=== PATIENT | male | born 1960 | race Two or more races ===

== ENCOUNTER 2017-07-19 03:58 | Emergency (ER) | payer MEDICAID, OTHER ==
[2017-07-19 03:58] VITALS: BMI 25.8
[2017-07-19 04:37] VITALS: BP 132/81; PULSE 78; RESP 18; TEMP 98.1; O2SAT 96
--- NOTE | 2017-07-19 05:03 | ED PDOC ---
Lower Extremity Pain/Injury Time Seen by Provider: 07/19/17 04:47 Chief Complaint (Nursing): Hip Pain History Per: Patient Additional Complaint(s): 56 year old male s/p L hip replacement 2 years ago, w/ h/o chronic L hip pain, presents to the ER, c/l L hip pain, mentions that he tripped and fell yesterday , causing exacerbation of his chronic L hip pain. Denies any other injury, numbness, LOC, back pain, head injury, or other complaints. - Hip Description Of Injury: Fell Past Medical History Vital Signs: Last Vital Signs Temp 98.1 F 07/19/17 04:34 Pulse 78 07/19/17 04:34 Resp 18 07/19/17 04:34 BP 132/81 07/19/17 04:34 Pulse Ox 96 07/19/17 04:34 - Medical History PMH: Depression, Chronic Pain Denies: Diabetes, Hepatitis, HIV, HTN, Chronic Kidney Disease, Seizures, Sexually Transmitted Disease - Family History Family History: States: Unknown Family Hx - Immunization History Hx Tetanus Toxoid Vaccination: No Hx Influenza Vaccination: No Hx Pneumococcal Vaccination: No - Home Medications Home Medications: Ambulatory Orders Medication Instructions Recorded Naproxen [Naprosyn] 1 tab PO BID PRN #30 tab 07/11/17 Naproxen [Naprosyn] 1 tab PO BID PRN #20 tab 07/16/17 - Allergies Allergies/Adverse Reactions: Allergies Allergy/AdvReac Type Severity Reaction Status Date / Time No Known Allergies Allergy Verified 07/16/17 23:04 Review of Systems Constitutional: Negative for: Fever, Weakness, Malaise Musculoskeletal: Positive for: Other (chronic L hip pain). Negative for: Neck Pain, Back Pain Skin: Negative for: Rash, Lesions Neurological: Negative for: Weakness, Numbness Physical Exam - Physical Exam Comments: GENERALIZED APPEARANCE:Patient is awake, alert, oriented x3 in no acute distress. Patient observed ambulating in the ER with his cane. SKIN:~ Warm, dry; (-) cyanosis. LOWER EXTREMITY:L hip: (-) deformity, (+) mild tenderness, (-) tenderness to the pelvis, (+) full range of motion secondary to pain. Knee, ankle and foot: (- ) tenderness, (-) deformity, (-) injury. CARDIOVASCULAR: (+) distal pulse. NEUROLOGIC: (+) distal sensation. - ECG O2 Sat by Pulse Oximetry: 96 Medical Decision Making Medical Decision Making: Impression : chronic L hip pain Plan : - XR L hip - Tylenol PO XR L hip : no fracture, no dislocation, no acute findings, XR compared to prior XR done on 07/11/17. X-ray results discussed with the patient in great detail. Patient instructed to follow-up with orthopedic referral provided in 1-2 days without fail. Rest, ice the joint. Return to the emergency room at any time for any new or worsening symptoms. Patient states he fully agrees with and understands discharge instructions. States that he agrees with the plan and disposition. Verbalized and repeated discharge instructions and plan. I have given the patient opportunity to ask any additional questions. 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
--- NOTE | 2017-07-19 08:30 | RAD ---
HISTORY: pain COMPARISON: No prior FINDINGS: BONES: Status post left hip arthroplasty in good anatomic alignment. JOINTS: Normal. No osteoarthritis. SOFT TISSUE: Normal. OTHER FINDINGS: None . IMPRESSION: Status post left hip arthroplasty in good anatomic alignment.
== END 2017-07-19 06:08 | disposition home or self-care (01) ==
LOC: H.ER 03:58
DX: M25.552 Pain in left hip (principal); G89.29 Other chronic pain; F32.9 Major depressive disorder, single episode, unspecified

== ENCOUNTER 2017-11-07 18:00 | Emergency (ER) | payer MEDICAID, OTHER ==
[2017-11-07 18:00] VITALS: BMI 25.8
[2017-11-07 18:07] VITALS: O2SAT 97
[2017-11-07] MEDS ORDERED: Tdap Vaccine 0.5 ml Vial (10-64 yrs) IM ONE ×2 (18:29→23:43)
--- NOTE | 2017-11-07 18:55 | CT ---
Date of service: 11/07/2017 PROCEDURE: CT HEAD WITHOUT CONTRAST. HISTORY: trauma COMPARISON: None available. TECHNIQUE: Axial computed tomography images were obtained through the head/brain without intravenous contrast. Radiation dose: Total exam DLP = 843.85 mGy-cm. This CT exam was performed using one or more of the following dose reduction techniques: Automated exposure control, adjustment of the mA and/or kV according to patient size, and/or use of iterative reconstruction technique. FINDINGS: HEMORRHAGE: No intracranial hemorrhage. BRAIN: No mass effect or edema. No atrophy or chronic microvascular ischemic changes. VENTRICLES: Unremarkable. No hydrocephalus. CALVARIUM: Unremarkable. PARANASAL SINUSES: Mild chronic ethmoid and right maxillary sinusitis. MASTOID AIR CELLS: Unremarkable as visualized. No inflammatory changes. OTHER FINDINGS: None. IMPRESSION: No acute intracranial hemorrhage. Mild chronic paranasal sinusitis. No additional abnormality
--- NOTE | 2017-11-07 19:01 | ED PDOC ---
HPI: Psych/Substance Abuse Time Seen by Provider: 11/07/17 18:09 Chief Complaint (Nursing): Alcohol Ingestion Chief Complaint (Provider): Alcohol Ingestion ED Caveat: Intoxicated History Per: Patient History/Exam Limitations: intoxication Onset/Duration Of Symptoms: Days (x2) Current Symptoms Are (Timing): Still Present Modifying Factor(s): Alcohol Additional Complaint(s): 57 y/o male brought to the ED for alcohol ingestion. Patient reports of drinking daily since Friday. Patient states he just got out of rehab/detox at [facility] and began drinking. Patient was walking outside today, fell and brought for further evaluation. Patient now complains of neck pain. Otherwise: (-) loss of consciousness, (-) headache, (-) back pain, (-) chest pain, (-) abdominal pain, (-) extremity injury. PMD: No family provider. Past Medical History Reviewed: Historical Data, Nursing Documentation, Vital Signs Vital Signs: Last Vital Signs Temp 97.8 F 11/07/17 18:03 Pulse 84 11/07/17 18:03 Resp 16 11/07/17 18:03 BP 162/99 H 11/07/17 18:03 Pulse Ox 97 11/07/17 18:03 - Medical History PMH: Depression, Chronic Pain Denies: Diabetes, Hepatitis, HIV, HTN, Chronic Kidney Disease, Seizures, Sexually Transmitted Disease - Surgical History Surgical History: No Surg Hx - Family History Family History: States: Unknown Family Hx - Social History Alcohol: > 2 Drinks/Day - Immunization History Hx Tetanus Toxoid Vaccination: No Hx Influenza Vaccination: No Hx Pneumococcal Vaccination: No - Home Medications Home Medications: Ambulatory Orders Medication Instructions Recorded Gabapentin [Neurontin] 100 mg PO TID #90 cap 10/31/17 Naltrexone [Revia] 50 mg PO DAILY #30 tab 10/31/17 traZODone [Desyrel] 100 mg PO HS PRN #30 tab 10/31/17 - Allergies Allergies/Adverse Reactions: Allergies Allergy/AdvReac Type Severity Reaction Status Date / Time No Known Allergies Allergy Verified 11/07/17 18:03 Review of Systems ROS Statement: Except As Marked, All Systems Reviewed And Found Negative Psych: Positive for: Other (EtOH intoxication) Physical Exam - Reviewed Nursing Documentation Reviewed: Yes Vital Signs Reviewed: Yes - Physical Exam Comments: GENERAL APPEARANCE: Patient is awake, alert, oriented x 3, in no acute distress. SKIN: Warm, dry; (-) cyanosis HEAD: (-) scalp swelling, (-) scalp tenderness. EYES: (-) conjunctival pallor, (-) scleral icterus, (-) nystagmus. ENMT: Mucous membranes moist. Airway patent: (-) stridor. (+) Abrasion to the bridge of the nose with mild swelling and tenderness to the nasal bridge NECK: (-) tenderness, (-) stiffness, (-) lymphadenopathy. HEART AND CARDIOVASCULAR: (-) irregularity; (-) murmur, (-) gallop. CHEST AND RESPIRATORY: (-) rales, (-) rhonchi, (-) wheezes; breath sounds equal. ABDOMEN: Soft, (-) distention, (-) tenderness, (-) guarding. NEURO AND PSYCH: Mental status as above. Affect: flat development executive: Intact. Pupils equal and reactive; EOMI; (-) facial asymmetry ; tongue and uvula midline. Strength and DTRs symmetric. - ECG O2 Sat by Pulse Oximetry: 97 Medical Decision Making Medical Decision Making: Time: 1828 Plan: -- CT Head w/o Contrast -- CT Maxillofacial w/o Contrast -- Alcohol Serum -- Adacel (10-64 yrs) 0.5 ml IM -- Cervial Spine AP & LATERAL XR Time: 1853 Alcohol 276 XR C spine : (-) fracture, DJD, as read by PA. HEAD CT RESULTS FINDINGS: HEMORRHAGE: No intracranial hemorrhage. BRAIN: No mass effect or edema. No atrophy or chronic microvascular ischemic changes. VENTRICLES: Unremarkable. No hydrocephalus. CALVARIUM: Unremarkable. PARANASAL SINUSES: Mild chronic ethmoid and right maxillary sinusitis. MASTOID AIR CELLS: Unremarkable as visualized. No inflammatory changes. OTHER FINDINGS: None. IMPRESSION: No acute intracranial hemorrhage. Mild chronic paranasal sinusitis. No additional abnormality CT maxillofacial : FINDINGS: Bones/joints: Comminuted fractures of the bilateral nasal bones. Associated soft tissue swelling. Soft tissues: See above. Orbits: Unremarkable. Sinuses: Partial opacification of the bilateral maxillary sinuses and ethmoids. No air-fluid levels. IMPRESSION: Comminuted fractures of the bilateral nasal bones. Associated soft tissue swelling. Dictated and Authenticated by: Daniel Crowell MD 11/07/2017 7:34 PM Eastern Time ([place] & [place]) [address] results d/w the patient. Will observe in the ER until patient is clinically sober. Case endorsed to DEJAH Wong pending sobriety. Scribe Attestation: Documented by Danny Singh acting as a scribe for Celeste Wang PA-C. Provider Scribe Attestation: All medical record entries made by the Scribe were at my direction and personally dictated by me. I have reviewed the chart and agree that the record accurately reflects my personal performance of the history, physical exam, medical decision making, and the department course for this patient. I have also personally directed, reviewed, and agree with the discharge instructions and disposition. 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
[2017-11-07 19:33] VITALS: RESP 18
--- NOTE | 2017-11-07 20:17 | ED PDOC ---
- ECG O2 Sat by Pulse Oximetry: 97 Pulse Ox Interpretation: Normal Medical Decision Making Medical Decision Making: Case was signed out to freelance copywriter pending sobriety and final disposition. 10:10 pm: patient is asleep, arousable, vital signs stable, will continue to monitor 11:30 pm: Patient is awake, alert, has steady gait, stable for discharge Disposition - Clinical Impression Clinical Impression: Alcohol intoxication, Head trauma, Nasal bone fracture - POA Present On Arrival: None - Disposition Referrals: [facility] [Outside] Disposition: Routine/Home Disposition Time: 23:31 Condition: STABLE Additional Instructions: Take Tylenol or Advil for facial pain as needed. Ice affected area as much as possible. Follow-up with clinic in 2-3 days or return to ED any time if acutely worse. Instructions: Nose Fracture, Minor Head Injury (DC), Alcohol Abuse and Alcoholism (DC) Forms: [employer] (Chinese) Print Language: UPPER SORBIAN
[2017-11-07 23:32] VITALS: BP 102/67; PULSE 68; TEMP 97.9
--- NOTE | 2017-11-08 07:12 | RAD ---
Date of service: 11/07/2017 PROCEDURE: Cervical Spine Radiographs. HISTORY: Pain. COMPARISON: None. FINDINGS: BONES: Alignment maintained. No fracture. Dens Intact. DISC SPACES: Anterior spondylosis at C5-6 . SOFT TISSUES: Normal. No prevertebral soft tissue swelling. OTHER FINDINGS: None. IMPRESSION: Anterior spondylosis at C5-6 .
--- NOTE | 2017-11-08 08:31 | CT ---
Date of service: 11/07/2017 PROCEDURE: CT MAXILLOFACIAL BONES WITHOUT CONTRAST HISTORY: trauma COMPARISON: None available. TECHNIQUE: Contiguous axial CT images of the maxillofacial bones were obtained. Coronal and sagittal reformats were generated. Radiation dose: Total exam DLP = mGy-cm. This CT exam was performed using one or more of the following dose reduction techniques: Automated exposure control, adjustment of the mA and/or kV according to patient size, and/or use of iterative reconstruction technique. FINDINGS: NASAL BONES: Bilateral comminuted nasal bone fractures.. ORBITS: Unremarkable. PARANASAL SINUSES/ MASTOIDS: Clear. MAXILLA: Unremarkable. MANDIBLE/ TEMPOROMANDIBULAR JOINTS: Unremarkable. SKULL BASE: Unremarkable. TEMPORAL BONES: Middle ears and mastoid grossly unremarkable. OTHER FINDINGS: None. IMPRESSION: Bilateral comminuted nasal bone fractures..
== END 2017-11-08 | disposition home or self-care (01) ==
LOC: H.ER 18:00
DX: F10.129 Alcohol abuse with intoxication, unspecified (principal); S02.2XXA Fracture of nasal bones, initial encounter for closed fracture; S09.90XA Unspecified injury of head, initial encounter; W19.XXXA Unspecified fall, initial encounter; Y92.89 Other specified places as the place of occurrence of the external cause; F32.9 Major depressive disorder, single episode, unspecified; G89.29 Other chronic pain; J32.9 Chronic sinusitis, unspecified

== ENCOUNTER 2018-05-20 13:23 | Emergency (ER) | payer MEDICAID, OTHER ==
[2018-05-20 13:23] VITALS: BMI 25.1
[2018-05-20 13:31] VITALS: BP 143/88; PULSE 88; RESP 16; TEMP 98; O2SAT 98
[2018-05-20] MEDS ORDERED: Naproxen 500 MG TAB PO STA (13:52)
--- NOTE | 2018-05-20 14:32 | ED PDOC ---
HPI: Psych/Substance Abuse Time Seen by Provider: 05/20/18 13:35 Chief Complaint (Nursing): Alcohol Ingestion Chief Complaint (Provider): Alcohol Ingestion History Per: Patient History/Exam Limitations: no limitations Onset/Duration Of Symptoms: Days (x 1 ) Current Symptoms Are (Timing): Still Present Suicide/Self Injury Attempted (Context): None Modifying Factor(s): Alcohol Additional Complaint(s): 57 year old male with a history of alcohol abuse presents to the ED via EMS for evaluation of alcohol intoxication and a medication refill. Patient reports he was sitting on the curb when a bystander called EMS for him, prompting ED visit. He admits to drinking 2 24 ounce Wray beers this morning. Patient states t hat he recently had a hip replacement and manages pain with Naproxen, but ran out of medication and drank alcohol instead. He ambulated with cane upon arrival to ED with EMS. Patient is cooperative upon arrival and offers no medical complaints. Denies falls, recent fever or trauma. PMD: none provided Past Medical History Reviewed: Historical Data Vital Signs: Last Vital Signs Temp 98.0 F 05/20/18 13:27 Pulse 88 05/20/18 13:27 Resp 16 05/20/18 13:27 BP 143/88 05/20/18 13:27 Pulse Ox 98 05/20/18 13:27 - Medical History PMH: Depression, Chronic Pain Other PMH: alcohol abuse - Surgical History Other surgeries: hip replacement - Family History Family History: States: Unknown Family Hx - Home Medications Home Medications: Ambulatory Orders Medication Instructions Recorded RX: Cyclobenzaprine [Flexeril] 10 mg PO TID #15 tab 05/14/18 RX: Naproxen [Naprosyn] 1 tab PO BID PRN #25 tab 05/19/18 RX: Naproxen 500 mg PO BID PRN #20 tab 05/20/18 - Allergies Allergies/Adverse Reactions: Allergies Allergy/AdvReac Type Severity Reaction Status Date / Time No Known Allergies Allergy Verified 05/20/18 13:27 Review of Systems ROS Statement: Except As Marked, All Systems Reviewed And Found Negative Musculoskeletal: Positive for: Other (hip pain) Physical Exam - Reviewed Nursing Documentation Reviewed: Yes Vital Signs Reviewed: Yes - Physical Exam Comments: GENERAL APPEARANCE: Patient is awake, alert, oriented x3, in no distress; appears disheveled with the odor of alcohol. SKIN: Warm, dry; (-) cyanosis EYES: (+) mild bilateral conjunctival injection ENMT: Mucous membranes moist. Airway patent: (-) stridor. NECK: Supple, FROM HEART AND CARDIOVASCULAR: (-) irregularity CHEST AND RESPIRATORY: (-) rales, (-) rhonchi, (-) wheezes; breath sounds equal. Respirations nonlabored. NEURO AND PSYCH: Mental status as above. Pupils equal and reactive; EOMI; (+) slightly unsteady gait. - ECG O2 Sat by Pulse Oximetry: 98 (RA) Pulse Ox Interpretation: Normal Medical Decision Making Medical Decision Makin:50 Impression: alcohol intoxication, hip pain and medication refill Initial Plan: --Glucose POC --Alcohol serum --Naproxen 500 mg PO --Re-evaluation 1440 Serum alcohol: 287 Accucheck: 86 Patient sleeping comfortably on re-evaluation. No distress noted. 1550 On re-evaluation, patient reports improvement of symptoms. Tolerating PO intake without difficulty. Patient AAOx3, in no acute distress; gait steady with cane in ED. Vitals stable. Lab/Diagnostic results d/w the patient in great detail. Diagnosis of alcohol intoxication, chronic hip pain d/w the patient. Based on history, exam and diagnostic results, plan will be for outpatient follow up. Patient instructed to follow-up with pmd / referral provided / the clinic in 1- 2 days without fail. Advised to take medication as prescribed. Return to the emergency room at any time for any new or worsening symptoms. Patient states he fully agrees with and understands discharge instructions. States that he agrees with the plan and disposition. Verbalized and repeated discharge instructions and plan. I have given the patient opportunity to ask any additional questions. Scribe Attestation: Documented by Ann-Marie Caceres, acting as a scribe for Corutney Moya PA-C Provider Scribe Attestation: All medical record entries made by the Scribe were at my direction and personally dictated by me. I have reviewed the chart and agree that the record accurately reflects my personal performance of the history, physical exam, medical decision making, and the department course for this patient. I have also personally directed, reviewed, and agree with the discharge instructions and disposition. Disposition - Clinical Impression Clinical Impression: Chronic hip pain, Alcohol abuse with intoxication - Patient ED Disposition Is Patient to be Admitted: No Counseled Patient/Family Regarding: Studies Performed, Diagnosis, Need For Followup, Rx Given - Disposition Referrals: [facility] [Outside] Disposition: Routine/Home Disposition Time: 15:55 Condition: STABLE Additional Instructions: The emergency medical care you received today was directed at your acute symptoms. If you were prescribed any medication, please fill it and take as directed. It may take several days for your symptoms to resolve. Return to the Emergency Department if your symptoms worsen, do not improve, or if you have any other problems. Please contact your doctor in 2 days for re-evaluation and follow up / or call one of the physicians/clinics you have been referred to that are listed on the Patient Visit Information form that is included in your discharge packet. Bring any paperwork you were given at discharge with you along with any medications you are taking to your follow up visit. Our treatment cannot replace ongoing medical care by a primary care provider (PCP) outside of the emergency department. Prescriptions: RX: Naproxen 500 mg PO BID PRN #20 tab PRN Reason: Pain, Moderate (4-7) Instructions: Alcohol Use - When Is Drinking a Problem?, Chronic Pain (DC), Hip Pain (DC), Effects of Alcohol on Your Health Forms: [employer] ([place] Citizen) Print Language: ROMANIAN - POA Present On Arrival: None Results - Lab Results Lab Results: 05/20/18 05/20/18 14:20 14:02 POC Glucose (mg/dL) 86 Alcohol, Quantitative 287 H
[2018-05-20] MEDS ORDERED: Naproxen 500 MG TAB PO ONE (14:56)
== END 2018-05-20 15:55 | disposition home or self-care (01) ==
LOC: H.ER 13:23
DX: F10.129 Alcohol abuse with intoxication, unspecified (principal); M25.552 Pain in left hip; Z96.649 Presence of unspecified artificial hip joint

== ENCOUNTER 2018-05-31 04:38 | Emergency (ER) | payer OTHER ==
[2018-05-31 04:39] VITALS: BMI 25.1
[2018-05-31 05:42] VITALS: BP 122/81; PULSE 94; RESP 16; TEMP 98.7; O2SAT 98
--- NOTE | 2018-05-31 06:07 | ED PDOC ---
Lower Extremity Pain/Injury Time Seen by Provider: 05/31/18 05:29 Chief Complaint (Nursing): Hip Pain Chief Complaint (Provider): Hip Pain History Per: Patient History/Exam Limitations: no limitations Onset/Duration Of Symptoms: Persistent Current Symptoms Are (Timing): Still Present Additional Complaint(s): 57 year old undomiciled male well known to this ED for a history of alcohol abuse and bed and drug seeking behavior reports to the ED for a medication refill. Patient reports he ran out of Motrin and would like to receive an injection..Denies new injury or trauma. PMD: none provided Past Medical History Reviewed: Historical Data, Nursing Documentation, Vital Signs Vital Signs: Last Vital Signs Temp 98.7 F 05/31/18 05:33 Pulse 94 H 05/31/18 05:33 Resp 16 05/31/18 05:33 BP 122/81 05/31/18 05:33 Pulse Ox 98 05/31/18 05:33 - Medical History PMH: Depression, Chronic Pain Denies: Alzheimer's Disease, Asthma, Atrial Fibrillation, Bronchitis, Cardia Arrhythmia, CHF, COPD, Dementia, Diabetes, Emphysema, Hepatitis, HIV, HTN, Hypercholesterolemia, Migraine, Mitral Valve Prolapse, Multiple Sclerosis, Parkinson's Disease, Peripheral Edema, Pneumonia, Pulmonary Embolism, Chronic Kidney Disease, Seizures, Sexually Transmitted Disease, Sleep Apnea, TIA Other PMH: alcohol abuse - Surgical History Surgical History: No Surg Hx Denies: Pacemaker - Family History Family History: States: Unknown Family Hx - Immunization History Hx Tetanus Toxoid Vaccination: No Hx Influenza Vaccination: No Hx Pneumococcal Vaccination: No - Home Medications Home Medications: Ambulatory Orders Medication Instructions Recorded RX: Naproxen [Naprosyn] 1 tab PO BID PRN #25 tab 05/19/18 Naproxen [Naprosyn] 500 mg PO Q12 #14 tab 05/31/18 - Allergies Allergies/Adverse Reactions: Allergies Allergy/AdvReac Type Severity Reaction Status Date / Time No Known Allergies Allergy Verified 05/28/18 01:50 Review of Systems ROS Statement: Except As Marked, All Systems Reviewed And Found Negative Physical Exam - Reviewed Nursing Documentation Reviewed: Yes Vital Signs Reviewed: Yes - Physical Exam Appears: Positive for: No Acute Distress Head Exam: Positive for: ATRAUMATIC, NORMAL INSPECTION, NORMOCEPHALIC Skin: Positive for: Normal Color, Warm, Dry Eye Exam: Positive for: EOMI, Normal appearance, PERRL Neck: Positive for: Normal, Painless ROM, Supple Cardiovascular/Chest: Positive for: Regular Rate, Rhythm. Negative for: Murmur Respiratory: Positive for: Normal Breath Sounds. Negative for: Respiratory Distress Gastrointestinal/Abdominal: Positive for: Normal Exam, Soft. Negative for: Tenderness Back: Positive for: Normal Inspection. Negative for: L CVA Tenderness, R CVA Tenderness Extremity: Positive for: Normal ROM. Negative for: Deformity Neurologic/Psych: Positive for: Alert, Oriented. Negative for: Motor/Sensory Deficits - ECG O2 Sat by Pulse Oximetry: 98 (RA) Pulse Ox Interpretation: Normal Medical Decision Making Medical Decision Makin:52 Impression: 57 year old male with prescription refill for chronic hip pain Initial Plan: --Toradol 30 mg IM Scribe Attestation: Documented by Ann-Marie Caceres acting as a scribe for Venkat Bernabe MD Provider Scribe Attestation: All medical record entries made by the Scribe were at my direction and personally dictated by me. I have reviewed the chart and agree that the record accurately reflects my personal performance of the history, physical exam, medical decision making, and the department course for this patient. I have also personally directed, reviewed, and agree with the discharge instructions and disposition. Disposition - Clinical Impression Clinical Impression: Chronic hip pain - Disposition Disposition: Routine/Home Disposition Time: 06:00 Condition: STABLE Prescriptions: Naproxen [Naprosyn] 500 mg PO Q12 #14 tab Instructions: Hip Pain in Older People Forms: [employer] (Slovenian)
== END 2018-05-31 06:18 | disposition home or self-care (01) ==
LOC: H.ER 04:38
DX: M25.559 Pain in unspecified hip (principal); Z46.0 Encounter for fitting and adjustment of spectacles and contact lenses; G89.29 Other chronic pain; Z86.59 Personal history of other mental and behavioral disorders
CPT/HCPCS: 96372; 99283; J1885

== ENCOUNTER 2018-06-02 22:08 | Emergency (ER) | payer OTHER ==
[2018-06-02 22:08] VITALS: BMI 25.1
[2018-06-02 22:12] VITALS: BP 149/94; PULSE 90; RESP 16; TEMP 97.8; O2SAT 98
--- NOTE | 2018-06-02 22:25 | ED PDOC ---
Lower Extremity Pain/Injury Time Seen by Provider: 06/02/18 22:16 Chief Complaint (Nursing): Hip Pain History Per: Patient Additional Complaint(s): Pt. states he is having L hip pain. Has had pain intermittent for several months. Requesting shot for pain. Pt. states he is usually able to alleviate pain with Naproxen but has not been able to get medication. Also states he has not taken any meds to help relieve symptoms. Denies trauma, fever, chills, numbness, tingling, back pain, incontinence. Admits to drinking alcohol today. Past Medical History Reviewed: Historical Data, Nursing Documentation, Vital Signs Vital Signs: Last Vital Signs Temp 97.8 F 06/02/18 22:09 Pulse 90 06/02/18 22:09 Resp 16 06/02/18 22:09 BP 149/94 H 06/02/18 22:09 Pulse Ox 98 06/02/18 22:09 - Medical History PMH: Depression, Chronic Pain Denies: Alzheimer's Disease, Asthma, Atrial Fibrillation, Bronchitis, Cardia Arrhythmia, CHF, COPD, Dementia, Diabetes, Emphysema, Hepatitis, HIV, HTN, Hypercholesterolemia, Migraine, Mitral Valve Prolapse, Multiple Sclerosis, Parkinson's Disease, Peripheral Edema, Pneumonia, Pulmonary Embolism, Chronic Kidney Disease, Seizures, Sexually Transmitted Disease, Sleep Apnea, TIA - Surgical History Surgical History: Denies: Pacemaker - Family History Family History: States: No Known Family Hx, Unknown Family Hx - Immunization History Hx Tetanus Toxoid Vaccination: No Hx Influenza Vaccination: No Hx Pneumococcal Vaccination: No - Home Medications Home Medications: Ambulatory Orders Medication Instructions Recorded RX: Naproxen [Naprosyn] 1 tab PO BID PRN #25 tab 05/19/18 RX: No Known Home Med 05/27/18 Naproxen [Naprosyn] 500 mg PO Q12 #14 tab 05/31/18 - Allergies Allergies/Adverse Reactions: Allergies Allergy/AdvReac Type Severity Reaction Status Date / Time No Known Allergies Allergy Verified 06/02/18 22:09 Review of Systems ROS Statement: Except As Marked, All Systems Reviewed And Found Negative Physical Exam - Physical Exam Appears: Positive for: Well, Non-toxic, No Acute Distress Skin: Positive for: Normal Color, Warm. Negative for: Rash Eye Exam: Positive for: Normal appearance Pulses-Dorsalis Pedis (L): 2+ Pulses-Dorsalis Pedis (R): 2+ Extremity: Positive for: Other (No tenderness or deformity to b/l hips or pelvis). Negative for: Calf Tenderness (b/l) Neurologic/Psych: Positive for: Alert, Oriented (x3), Gait (steady, unassisted - has cane but walks without it). Negative for: Aphasia, Facial Droop - ECG O2 Sat by Pulse Oximetry: 98 - Progress ED Course And Treament: Toradol 30mg IM ordered. On re-evaluation, pt. reports good pain relief. Disposition - Clinical Impression Clinical Impression: Hip pain, Alcohol intoxication - Patient ED Disposition Is Patient to be Admitted: No - Disposition Referrals: [facility] [Outside] Disposition: Routine/Home Disposition Time: 22:23 Condition: STABLE Additional Instructions: SUNDEEP GUERRERO, thank you for letting us take care of you today. Your provider was Nabil Little MD and you were treated for HIP PAIN. The emergency medical care you received today was directed at your acute symptoms. If you were prescribed any medication, please fill it and take as directed. It may take several days for your symptoms to resolve. Return to the Emergency Department if your symptoms worsen, do not improve, or if you have any other problems. Please contact your doctor or call one of the physicians/clinics you have been referred to that are listed on the Patient Visit Information form that is included in your discharge packet. Bring any paperwork you were given at discharge with you along with any medications you are taking to your follow up visit. Our treatment cannot replace ongoing medical care by a primary care provider outside of the emergency department. Thank you for allowing the [facility] team to be part of your care today. If you had an X-Ray or CT scan: A Radiologist will review the ED reading if any change in treatment is needed we will contact you. If you had a blood, urine, or wound culture: It will take several days for the results, if any change in treatment is needed we will contact you. If you had an STI test: It will take 48 hours for the results. Please call after 1 week if you have not heard back. Instructions: Alcohol Use - When Is Drinking a Problem?, Hip Pain (DC), Alcohol Abuse and Alcoholism (DC) Forms: [email or web address] (Slovak) Print Language: KOREAN
== END 2018-06-02 22:51 | disposition home or self-care (01) ==
LOC: H.ER 22:08
DX: M25.552 Pain in left hip (principal); F10.129 Alcohol abuse with intoxication, unspecified; G89.29 Other chronic pain; Z86.59 Personal history of other mental and behavioral disorders
CPT/HCPCS: 96372; 99282; J1885

== ENCOUNTER 2018-06-06 11:34 | Emergency (ER) | payer OTHER ==
[2018-06-06 11:42] VITALS: BMI 25.8
[2018-06-06 11:46] VITALS: BP 148/84; PULSE 76; RESP 20; TEMP 97.8; O2SAT 97
[2018-06-06] MEDS ORDERED: Naproxen 500 MG TAB PO STA (11:51)
[2018-06-06] MEDS ORDERED: Naproxen 500 MG TAB PO ONE (12:23)
--- NOTE | 2018-06-06 12:44 | ED PDOC ---
HPI: Psych/Substance Abuse Time Seen by Provider: 06/06/18 11:40 Chief Complaint (Nursing): Alcohol Ingestion Chief Complaint (Provider): Hip pain Past Medical History Reviewed: Historical Data, Nursing Documentation, Vital Signs Vital Signs: Last Vital Signs Temp 97.8 F 06/06/18 11:43 Pulse 76 06/06/18 11:43 Resp 20 06/06/18 11:43 BP 148/84 06/06/18 11:43 Pulse Ox 97 06/06/18 11:43 - Medical History PMH: Depression, Chronic Pain Denies: Alzheimer's Disease, Asthma, Atrial Fibrillation, Bronchitis, Cardia Arrhythmia, CHF, COPD, Dementia, Diabetes, Emphysema, Hepatitis, HIV, HTN, Hypercholesterolemia, Migraine, Mitral Valve Prolapse, Multiple Sclerosis, Parkinson's Disease, Peripheral Edema, Pneumonia, Pulmonary Embolism, Chronic Kidney Disease, Seizures, Sexually Transmitted Disease, Sleep Apnea, TIA - Surgical History Surgical History: Denies: Pacemaker - Family History Family History: States: Unknown Family Hx - Immunization History Hx Tetanus Toxoid Vaccination: No Hx Influenza Vaccination: No Hx Pneumococcal Vaccination: No - Home Medications Home Medications: Ambulatory Orders Medication Instructions Recorded Naproxen [Naprosyn] 1 tab PO BID PRN #25 tab 05/19/18 No Known Home Med 05/27/18 Naproxen [Naprosyn] 500 mg PO Q12 #14 tab 05/31/18 - Allergies Allergies/Adverse Reactions: Allergies Allergy/AdvReac Type Severity Reaction Status Date / Time No Known Allergies Allergy Verified 06/02/18 22:09 Review of Systems ROS Statement: Except As Marked, All Systems Reviewed And Found Negative (as per HPI) Musculoskeletal: Positive for: Other (hip pain) Physical Exam - Reviewed Nursing Documentation Reviewed: Yes Vital Signs Reviewed: Yes - Physical Exam Appears: Positive for: No Acute Distress Head Exam: Positive for: ATRAUMATIC, NORMAL INSPECTION, NORMOCEPHALIC Skin: Positive for: Warm, Dry Neck: Positive for: Painless ROM, Supple Cardiovascular/Chest: Positive for: Regular Rate, Rhythm. Negative for: Murmur Respiratory: Positive for: Normal Breath Sounds. Negative for: Respiratory Distress Gastrointestinal/Abdominal: Positive for: Soft. Negative for: Tenderness Extremity: Positive for: Normal ROM. Negative for: Deformity Lymphatic: Negative for: Adenopathy Neurologic/Psych: Positive for: Alert, Oriented, Gait (slow with a cane). Negative for: Motor/Sensory Deficits - ECG O2 Sat by Pulse Oximetry: 97 (RA) Pulse Ox Interpretation: Normal Medical Decision Making Medical Decision Making: Time: 1151 Impression: Hip pain and Alcohol Abuse Plan: Naproxen 500 mg PO Scribe Attestation: Documented by Roge De Paz, acting as a scribe for Fallon Davila MD. Provider Scribe Attestation: All medical record entries made by the Scribe were at my direction and personally dictated by me. I have reviewed the chart and agree that the record accurately reflects my personal performance of the history, physical exam, medical decision making, and the department course for this patient. I have also personally directed, reviewed, and agree with the discharge instructions and disposition. Disposition - Clinical Impression Clinical Impression: Alcohol abuse, Hip pain Counseled Patient/Family Regarding: Studies Performed, Diagnosis, Need For Followup - Disposition Referrals: [facility] [Outside] Disposition: Routine/Home Disposition Time: 12:30 Condition: STABLE Additional Instructions: IF YOU ARE UNABLE TO FILL YOUR NAPROSYN PRESCRIPTION, YOU CAN ALSO TAKE ALLEVE WHICH DOES NOT REQUIRE PRESCRIPTION Instructions: Abuse of Alcohol (ED), Hip Pain
== END 2018-06-06 13:05 | disposition home or self-care (01) ==
LOC: H.ER 11:34
DX: F10.129 Alcohol abuse with intoxication, unspecified (principal); F32.9 Major depressive disorder, single episode, unspecified; G89.29 Other chronic pain; Z59.0 Homelessness

== ENCOUNTER 2018-06-07 01:30 | Emergency (ER) | payer OTHER ==
[2018-06-07 01:30] VITALS: BMI 25.8
[2018-06-07 01:42] VITALS: BP 164/88; PULSE 100; RESP 16; TEMP 98.2; O2SAT 99
[2018-06-07] MEDS ORDERED: Naproxen 500 MG TAB PO STA (02:04)
--- NOTE | 2018-06-07 02:25 | ED PDOC ---
HPI: General Adult Time Seen by Provider: 06/07/18 01:41 Chief Complaint (Nursing): Hip Pain Chief Complaint (Provider): Hip Pain History Per: Patient History/Exam Limitations: no limitations Onset/Duration Of Symptoms: Days (1) Current Symptoms Are (Timing): Still Present Additional Complaint(s): 57 year old undomiciled male presents to the ED complaining he fell in the snow yesterday, landing on his left hip. He is unable to walk. Patient takes Naproxen for chronic pain which he ran out and is currently requesting for the medication in the ED. Otherwise, he denies fever, abdominal pain, numbness or weakness. PMD: Non [facility] Provider Past Medical History Reviewed: Historical Data, Nursing Documentation, Vital Signs Vital Signs: Last Vital Signs Temp 98.2 F 06/07/18 01:35 Pulse 100 H 06/07/18 01:35 Resp 16 06/07/18 01:35 BP 164/88 H 06/07/18 01:35 Pulse Ox 99 06/07/18 01:35 - Medical History PMH: Depression, Chronic Pain Denies: Alzheimer's Disease, Asthma, Atrial Fibrillation, Bronchitis, Cardia Arrhythmia, CHF, COPD, Dementia, Diabetes, Emphysema, Hepatitis, HIV, HTN, Hypercholesterolemia, Migraine, Mitral Valve Prolapse, Multiple Sclerosis, Parkinson's Disease, Peripheral Edema, Pneumonia, Pulmonary Embolism, Chronic Kidney Disease, Seizures, Sexually Transmitted Disease, Sleep Apnea, TIA - Surgical History Surgical History: Denies: Pacemaker - Family History Family History: States: Unknown Family Hx - Immunization History Hx Tetanus Toxoid Vaccination: No Hx Influenza Vaccination: No Hx Pneumococcal Vaccination: No - Home Medications Home Medications: Ambulatory Orders Medication Instructions Recorded Naproxen [Naprosyn] 1 tab PO BID PRN #25 tab 05/19/18 No Known Home Med 05/27/18 Naproxen [Naprosyn] 500 mg PO Q12 #14 tab 05/31/18 - Allergies Allergies/Adverse Reactions: Allergies Allergy/AdvReac Type Severity Reaction Status Date / Time No Known Allergies Allergy Verified 06/07/18 01:41 Review of Systems ROS Statement: Except As Marked, All Systems Reviewed And Found Negative Constitutional: Negative for: Fever Gastrointestinal: Negative for: Abdominal Pain Musculoskeletal: Positive for: Other (left hip pain) Neurological: Negative for: Weakness, Numbness Physical Exam - Reviewed Nursing Documentation Reviewed: Yes Vital Signs Reviewed: Yes - Physical Exam Appears: Positive for: Well (disheveled), Non-toxic, No Acute Distress Head Exam: Positive for: ATRAUMATIC, NORMAL INSPECTION, NORMOCEPHALIC Skin: Positive for: Normal Color, Warm, Dry. Negative for: Rash Eye Exam: Positive for: EOMI, Normal appearance, PERRL Neck: Positive for: Normal, Painless ROM, Supple Cardiovascular/Chest: Positive for: Regular Rate, Rhythm. Negative for: Murmur Respiratory: Positive for: Normal Breath Sounds. Negative for: Decreased Breath Sounds, Respiratory Distress Gastrointestinal/Abdominal: Positive for: Normal Exam, Soft. Negative for: Tenderness Back: Positive for: Normal Inspection Extremity: Positive for: Normal ROM. Negative for: Tenderness, Pedal Edema Neurologic/Psych: Positive for: Alert, Oriented (x3), Gait (abulatory with cane) - ECG O2 Sat by Pulse Oximetry: 99 (RA) Pulse Ox Interpretation: Normal Medical Decision Making Medical Decision Making: Time: 0204 Plan: Naproxen 500mg Reevaluation Scribe Attestation: Documented by Sukhdeep Abel, acting as a scribe for Courtney Parker MD Provider Scribe Attestation: All medical record entries made by the Scribe were at my direction and personally dictated by me. I have reviewed the chart and agree that the record accurately reflects my personal performance of the history, physical exam, me dical decision making, and the department course for this patient. I have also personally directed, reviewed, and agree with the discharge instructions and disposition. Disposition - Clinical Impression Clinical Impression: Hip pain, Homelessness - Disposition Disposition: Routine/Home Disposition Time: 02:04 Condition: GOOD Instructions: Hip Pain (DC) Forms: [employer] (Polish)
== END 2018-06-07 03:26 | disposition home or self-care (01) ==
LOC: H.ER 01:30
DX: M25.552 Pain in left hip (principal); Z59.0 Homelessness

== ENCOUNTER 2018-07-02 14:41 | Inpatient (IN) | payer OTHER ==
[2018-07-02 14:42] VITALS: BMI 25.8
--- NOTE | 2018-07-02 15:49 | ED PDOC ---
HPI: Psych/Substance Abuse Time Seen by Provider: 07/02/18 15:10 Chief Complaint (Nursing): Psychiatric Evaluation Chief Complaint (Provider): Psychiatric Evaluation History Per: Patient History/Exam Limitations: no limitations Onset/Duration Of Symptoms: Hrs (earlier today) Additional Complaint(s): 57 year old male with pmhx of alcoholism presents to the ED via EMS for a psychiatric evaluation. Patient was brought in after making a suicidal comment while trying to get housing. He was discharged from [facility] this morning for intoxication, and upon discharge he states he drank more and went to find housing. He is currently homeless, but notes that he get his social security check on 07/06 and will be able to get housing then. Otherwise, denies current suicidal ideation stating he would never act upon it because he has a living daughter and uncle, but he has been depressed though secondary to his father dying two months in [place]. Additionally denies homicidal ideation, auditory hallucinations, and visual hallucinations. He is saying right now he just needs a place to rest. PMD: [facility] Past Medical History Reviewed: Historical Data, Nursing Documentation, Vital Signs Vital Signs: Last Vital Signs Temp 97.1 F L 07/02/18 14:48 Pulse 91 H 07/02/18 14:48 Resp 16 07/02/18 14:48 BP 142/89 07/02/18 14:48 Pulse Ox 96 07/02/18 14:48 - Medical History PMH: Depression, Chronic Pain (left hip) Denies: Alzheimer's Disease, Asthma, Atrial Fibrillation, Bronchitis, Cardia Arrhythmia, CHF, COPD, Dementia, Diabetes, Emphysema, Hepatitis, HIV, HTN, Hypercholesterolemia, Migraine, Mitral Valve Prolapse, Multiple Sclerosis, Parkinson's Disease, Peripheral Edema, Pneumonia, Pulmonary Embolism, Chronic Kidney Disease, Seizures, Sexually Transmitted Disease, Sleep Apnea, TIA - Surgical History Surgical History: Denies: Pacemaker Other surgeries: hip replacement - Family History Family History: States: Unknown Family Hx - Social History Alcohol: Other (hx abuse) - Immunization History Hx Tetanus Toxoid Vaccination: No Hx Influenza Vaccination: No Hx Pneumococcal Vaccination: No - Home Medications Home Medications: Ambulatory Orders Medication Instructions Recorded Mirtazapine [Remeron] 15 mg PO HS 07/02/18 Naproxen [Naprosyn] 500 mg PO Q12 PRN 07/02/18 Thiamine [Vitamin B1 Tab] 100 mg PO DAILY 07/02/18 - Allergies Allergies/Adverse Reactions: Allergies Allergy/AdvReac Type Severity Reaction Status Date / Time No Known Allergies Allergy Verified 07/02/18 14:48 Review of Systems ROS Statement: Except As Marked, All Systems Reviewed And Found Negative Psych: Positive for: Depression. Negative for: Suicidal ideation (or homicidal ideation), Other (auditory / visual hallucinations) Physical Exam - Reviewed Nursing Documentation Reviewed: Yes Vital Signs Reviewed: Yes - Physical Exam Comments: GENERAL APPEARANCE: Patient is awake, alert, oriented x 3, in no acute distress. Speaking in full sentences, but smells like alcohol. Able to ambulate with steady gait. SKIN: Warm, dry; (-) cyanosis HEAD: (-) scalp swelling, (-) scalp tenderness. EYES: (-) conjunctival pallor, (-) scleral icterus, (-) nystagmus. ENMT: Mucous membranes moist. Airway patent: (-) stridor. NECK: (-) tenderness, (-) stiffness, (-) lymphadenopathy. HEART AND CARDIOVASCULAR: (-) irregularity; (-) murmur, (-) gallop. CHEST AND RESPIRATORY: (-) rales, (-) rhonchi, (-) wheezes; breath sounds equal. ABDOMEN: Soft, (-) distention, (-) tenderness, (-) guarding. NEURO AND PSYCH: Mental status as above. 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 Pupils equal and reactive; EOMI; (-) facial asymmetry; tongue and uvula midline. Strength and DTRs symmetric. Speech normal, not slurred. - ECG O2 Sat by Pulse Oximetry: 96 (RA) Pulse Ox Interpretation: Normal Medical Decision Making Medical Decision Making: Time: 1518 Initial Impression: psychiatric evaluation pt does not appear to be intoxicated Initial Plan: --Alcohol serum --1:1 observation for recent SI and elopement risk --Accucheck --Crisis evaluation 1749 As per willow worker, patient is to be admitted for depression under Dr. Montalvo. Scribe Attestation: Documented by Meliza Jones, acting as a scribe for Jimi Robert PA-C. Provider Scribe Attestation: All medical record entries made by the Scribe were at my direction and personally dictated by me. I have reviewed the chart and agree that the record accurately reflects my personal performance of the history, physical exam, medical decision making, and the department course for this patient. I have also personally directed, reviewed, and agree with the discharge instructions and disposition. Disposition - Clinical Impression Clinical Impression: Depression - Patient ED Disposition Is Patient to be Admitted: Yes Counseled Patient/Family Regarding: Studies Performed, Diagnosis - Disposition Disposition Time: 17:51 Condition: STABLE - Pt Status Changed To: Hospital Disposition Of: Inpatient - Admit Certification Admit to Inpatient:: After my assessment, the patient will require hospitalization for at least two midnights. This is because of the severity of symptoms shown, intensity of services needed, and/or the medical risk in this patient being treated as an outpatient. - POA Present On Arrival: None
[2018-07-02 20:34] VITALS: O2SAT 97
[2018-07-02 20:54] LABS: URINE BILIRUBIN NEGATIVE (NEGATIVE); URINE BLOOD NEGATIVE (NEGATIVE); URINE CLARITY CLEAR (Clear); URINE COLOR STRAW (YELLOW); URINE GLUCOSE (UA) NEG (NEGATIVE); URINE LEUKOCYTE ESTERASE NEG Leu/uL (Negative); URINE PROTEIN NEGATIVE (NEGATIVE); URINE UROBILINOGEN 0.2-1.0 mg/dL (0.2-1.0)
[2018-07-02 21:02] LABS: BASO # 0.1 K/uL (0.0-0.2); BASO % 1.5 % (0.0-2.0); EOS # 0.2 K/uL (0.0-0.7); EOS % 3.1 % (0.0-4.0); HEMOGLOBIN 11.3 g/dL (12.0-18.0); LYMPH # 1.8 K/uL (1.0-4.3); LYMPH % 34.8 % (20.0-40.0); MEAN CELL VOLUME 80.1 fl (80.0-94.0); MEAN CORPUSCULAR HEMOGLOBIN 25.9 pg (27.0-31.0); MEAN CORPUSCULAR HGB CONC 32.3 g/dL (33.0-37.0); MEAN PLATELET VOLUME 7.7 fl (7.2-11.7); MONO # 0.5 K/uL (0.0-0.8); MONO % 9.8 % (0.0-10.0); NEUT # 2.6 K/uL (1.8-7.0); NEUT % 50.8 % (50.0-75.0); NRBC % 0.1 % (0.0-0.0); RBC 4.37 Mil/uL (4.40-5.90); RED CELL DISTRIBUTION WIDTH 15.2 % (11.5-14.5); WHITE BLOOD COUNT 5.2 K/uL (4.8-10.8)
[2018-07-02 21:06] LABS: BARBITURATES, UR NEGATIVE (NEGATIVE); BENZODIAZEPINES, UR NEGATIVE (NEGATIVE); OPIATES, UR NEGATIVE (NEGATIVE); PHENCYCLIDINE, UR NEGATIVE (NEGATIVE)
[2018-07-02 21:06] LABS: BLOOD UREA NITROGEN 9 mg/dl (9-20); GFR NON-AFRICAN AMERICAN > 60
[2018-07-02] MEDS ORDERED: Potassium Chloride 20 mEq ER Tab PO STA (21:16)
[2018-07-02] MEDS ORDERED: Potassium Chloride 20 mEq ER Tab PO ONE (21:24)
[2018-07-02] MEDS ORDERED: DiphenhydrAMINE 50 mg/ml Inj IM PRN (21:48)
[2018-07-02] MEDS ORDERED: Alum-Mag Hydrox-Simethicone Susp (30 mL) PO PRN (21:48)
[2018-07-02] MEDS ORDERED: Magnesium Hydroxide Susp 30 ml UD PO PRN (21:48)
--- NOTE | 2018-07-02 22:24 | PCM.BM ---
<Segundo Teixeira - Last Filed: 07/02/18 22:22> Treatment Plan Problems - Problems identified on initial assessmt Medication Nonadherence Date Initiated: 07/02/18 Time Initiated: 22:22 Assessment reference: NA Status: Active Priority: 1 Altered Sleep Pattern Date Initiated: 07/02/18 Time Initiated: 22:23 Assessment reference: NA Status: Active Priority: 2 Self Care Deficit Date Initiated: 07/02/18 Time Initiated: 22:23 Assessment reference: NA Status: Active Priority: 3 Social Isolation Date Initiated: 07/02/18 Time Initiated: 22:23 Assessment reference: NA Status: Active Priority: 4 Treatment assets and liabiliti Patient Assests: negotiates basic needs, cooperative, self-reliant, ADL independent Patient Liabilities: live alone, financial problems, other (ETOH Abuse) - Milieu Protocol Maintain good personal hygiene: daily Encourage regular showers, daily Remind patient to perform daily oral care, daily Assist patient to perform ADL's Maintain personal safety: every shift Educate patient to report safety concerns to staff, every shift Monitor environment for contraband/sharps Medication safety: Monitor for expected outcome, potential side effects: every shift, Assess barriers to learning: every shift, Assess readiness for medication education: every shift <Sydnee Montalvo - Last Filed: 07/03/18 09:48> - Diagnosis (1) Major depressive disorder Status: Acute Interventions: Medication management, Individual and group therapy, Psychoeducation 07/03/18 09:48 (2) Alcohol use disorder Status: Acute Interventions: Medication management, Individual and group therapy, Psychoeducation 07/03/18 09:49 <Harmony Stiles - Last Filed: 07/03/18 14:59> Family Contact Family contact: Patient agrees to contact, Family has been contacted by patient, Telephone contact initiated by staff Family contact name: Jostin An- brother - Goals for Treatment Patient goals for treatment: Pt will improve overall mood. Pt will report feeling less depressed. Pt will increased appetite and sleep pattern. Pt will explore issues relating to history of alcohol abuse. Pt will comply with prescribed medications. Pt will follow unit rules and regulations. Pt will attend clinical and activity groups. Discharge/Continuing Care - Education Needs Education Needs: Patient Medication, Patient Diagnosis/Disease Process, Patient Coping Skills, Patient Placement options, Patient Community resources, Patient Activities of Daily Living, Patient Uses of Medical Equipment, Patient Health Practices/Safety, Patient Personal Hygiene/Grooming, Patient Aftercare Safety Plan - Discharge Discharge Criteria: Tolerates medication w/o severe side effects, Normal sleep pattern, Ability to care for self, Reduction of target symptoms Discharge to:: [facility] - Additional Comments 07/03/18 14:49 Pt seen and discussed in team meeting. Reason for admission reviewed and discussed. Pt reported feeling depressed and abusing alcohol. Pt reported consuming 4-5 pints of vodka daily. Pt reported abusing vodka for the past 3 months following his father's passing in [place]. Pt reported having a close and strong relationship with his father. Pt reported he went to [place] to care for his father and was there for approximately 3 months. Pt reported that he lost his apartment in [place] as a result of staying in [place] for too long. Pt reported he is currently homeless and has been staying on the streets for 3 weeks. Pt denied current SI and HI. When assessed for SI prior to admission and while in the ED p stated "I was drunk." Pt denied hx of prior suicide attempts. Pt reported medication and treatment non-compliance. Pt's medications reviewed and discussed. Pt's social and medical issues reviewed. Pt reported that his goal for admission is to find housing and not return to the streets. Pt informed that housing resources are not available in the hospital and he must continue to search for an apartment or room to rent in the community post discharge. Tx plan reviewed and discussed. Pt signed release consent form for his brother, Jostin An. SW to continue to follow case. - Treatment Team Participation Discussed with Family/SO: No Was Patient/Family/SO present at Treatment Team Meeting: Yes
[2018-07-03 06:17] LABS: BASO # 0.1 K/uL (0.0-0.2); BASO % 1.5 % (0.0-2.0); EOS # 0.2 K/uL (0.0-0.7); EOS % 3.2 % (0.0-4.0); HEMOGLOBIN 11.5 g/dL (12.0-18.0); LYMPH # 1.6 K/uL (1.0-4.3); LYMPH % 31.1 % (20.0-40.0); MEAN CELL VOLUME 79.7 fl (80.0-94.0); MEAN CORPUSCULAR HEMOGLOBIN 25.9 pg (27.0-31.0); MEAN CORPUSCULAR HGB CONC 32.4 g/dL (33.0-37.0); MONO # 0.6 K/uL (0.0-0.8); MONO % 12.3 % (0.0-10.0); NEUT # 2.6 K/uL (1.8-7.0); NEUT % 51.9 % (50.0-75.0); NRBC % 0.1 % (0.0-0.0); RBC 4.46 Mil/uL (4.40-5.90); RED CELL DISTRIBUTION WIDTH 15.2 % (11.5-14.5)
[2018-07-03 06:40] LABS: LDL CHOLESTEROL 113 mg/dL (0-129)
[2018-07-03 06:55] LABS: ALB/GLOB RATIO 1.3 (1.0-2.1); ALBUMIN 4.1 g/dL (3.5-5.0); ALT/SGPT 40 U/L (21-72); AST/SGOT 75 U/L (17-59); BLOOD UREA NITROGEN 12 mg/dl (9-20); CALCIUM 9.3 mg/dL (8.4-10.2); GFR NON-AFRICAN AMERICAN > 60; HDL CHOLESTEROL 88 MG/DL (30-70)
[2018-07-03] MEDS: Multivitamin With Minerals Tab PO SCH (09:11)
--- NOTE | 2018-07-03 09:49 | PCM.PSYCH ---
Initial Psychiatric Evaluation - Initial Psychiatric Evaluation Type of Admission: Voluntary Legal Status: Capacity Chief Complaint (in patient's own words): Depression Patient's Reaction to Hospitalization: HPI: 57 yo male w/ h/o depression and alcohol use disorder, presents with worsening depression, anxiety, feeling of hopelessness, sleep/appetite disturbances, and suicidal ideation w/o current plan or intent, in the context of continued alcohol abuse. Denies acute AH/VH/HI. Patient is able to contract for safety at this time. PPHx: History of multiple psychiatric admissions to [facility], most recent admission 06/14/15-06/20/18. PMHx: Chronic hip pain s/p hip replacement; ambulates with a cane FHx: Denies family history of psychiatric illness SHx: Homeless; drinks 4-5 pints of vodka/daily; denies drugs; denies cig use; ; 1 adult daughter (estranged from daughter) Current Medications: Active Medications Generic Name Dose Route Start Last Admin Trade Name Freq PRN Reason Stop Dose Admin Acetaminophen 650 mg 07/02/18 21:48 Tylenol 325mg Tab PO Q4 PRN for 4-7 pain Al Hydrox/Mg Hydrox/Simethicone 30 ml 07/02/18 21:48 Maalox Plus 30 Ml PO Q4 PRN Dyspepsia Diphenhydramine HCl 50 mg 07/02/18 21:48 Benadryl IM Q6 PRN Extrapyramidal S/S Unable PO Diphenhydramine HCl 50 mg 07/02/18 21:48 Benadryl PO Q6 PRN Extrapyramidal Symptoms Diphenhydramine HCl 25 mg 07/02/18 21:48 Benadryl PO HS PRN Insomnia Folic Acid 1 mg 07/03/18 09:00 07/03/18 09:11 Folic Acid PO 1 mg DAILY ALICIA Administration Haloperidol 5 mg 07/02/18 21:48 Haldol PO Q4 PRN Agitation Haloperidol Lactate 5 mg 07/02/18 21:48 Haldol IM Q4 PRN Agitation, Unable to Take PO Lorazepam 2 mg 07/02/18 21:48 Ativan IM Q6 PRN Anxiety/Agitation,Unable PO Lorazepam 1 mg 07/02/18 21:48 Ativan PO Q8 PRN Anxiety/Agitation Lorazepam 1 mg 07/02/18 21:58 07/03/18 09:11 Ativan PO 1 mg TID ALICIA Administration Magnesium Hydroxide 30 ml 07/02/18 21:48 Milk Of Magnesia PO HS PRN Constipation Multivitamins/Minerals 1 tab 07/03/18 09:00 07/03/18 09:11 Therapeutic-M Tab PO 1 tab DAILY ALICIA Administration Thiamine HCl 100 mg 07/03/18 09:00 07/03/18 09:12 Vitamin B1 Tab PO 100 mg DAILY ALICIA Administration Past Psychiatric History - Past Psychiatric History Previous Treatment History: Inpatient Pertinent Medical Hx (Current Medical&Sleep Prob, Allergies): Allergies Allergy/AdvReac Type Severity Reaction Status Date / Time No Known Allergies Allergy Verified 07/02/18 14:48 Mirtazapine [Remeron] 15 mg PO HS 07/02/18 Naproxen [Naprosyn] 500 mg PO Q12 PRN 07/02/18 Thiamine [Vitamin B1 Tab] 100 mg PO DAILY 07/02/18 Review of Systems - Psychiatric Psychiatric: As Per HPI, Abnormal Sleep Pattern, Anhedonia, Anxiety, Change in Appetite, Depression, Difficulty Concentrating, Hopelessness, Irritability, Mood Swings, Suicidal Ideation Mental Status Examination - Personal Presentation Personal Presentation: Looks stated age - Affect Affect: Constricted, Depressed - Motor Activity Motor Activity: Calm - Reliability in Providing Information Reliability in Providing Information: Good - Speech Speech: Organized, Coherent - Mood Mood: Depressed, Anxious - Formal Thought Process Formal Thought Process: No Impairment - Hallucinations/Delusions Additional comments: No AH/VH/paranoia/delusions - Obsessions/Compulsions Obsessions: No Compulsions: No - Cognitive Functions Orientation: Person, Place, Situation, Time Sensorium: Alert Attention/Concentration: Attentive Judgement: Imparied, as evidence by: Poor judgement Memory: Recent intact, as evidence by: Ability to recall events of the day, Remote intact, as evidenced by: Abilit to recall sig. life events, Remote intact, as evidenced by: Ability to recall historical events - Risk Risk: Suicidal, Diminished functioning - Strength & Assets Inventory Strength & Assets Inventory: Cooperative - Limitations Limitations: Other (Homelessness, Poverty) DSM 5 DX - DSM 5 DSM 5 Diagnosis: Major Depressive Disorder; Alcohol Use Disorder - Recommended/Plan of Treatment Treatment Recommendations and Plan of Treatment: Major Depressive Disorder; Alcohol Use Disorder -Admit to psychiatry unit -Medicine consult -Individual and group therapy -Psychoeducation -Thiamine and Folate -Ativan to prevent ETOH withdrawal -Restart Remeron -Disposition planning Projected ELOS: 5-9 days Discharge Plan and Discharge Criteria: Discharge when patient is psychiatrically stable - Smoking Cessation Smoking Cessation Initiated: No Reason for not providing: Not indicated
[2018-07-03] MEDS ORDERED: Naproxen 500 MG TAB PO PRN (10:36)
--- NOTE | 2018-07-03 11:40 | CP.PCM.CON ---
<Jorgito Lindsay - Last Filed: 07/03/18 16:16> History of Present Illness - History of Present Illness History of Present Illness: HPI: 57 y/o man w/ pmh of alcoholism is admitted to psych for depression and alcohol abuse. Patient has previous hip replacement surgery and ambulates unassisted. Patient has no other complaints. Patient denies headaches, chest pain, dizziness, dyspnea, abdominal pain, nausea, vomiting, diarrhea, dysuria, or fever. Review of Systems - Review of Systems All systems: reviewed and no additional remarkable complaints except - Constitutional Constitutional: absent: Chills, Fever, Headache - EENT Eyes: absent: Change in Vision - Cardiovascular Cardiovascular: absent: Chest Pain - Respiratory Respiratory: absent: Dyspnea - Gastrointestinal Gastrointestinal: absent: Abdominal Pain, Diarrhea, Nausea, Vomiting - Genitourinary Genitourinary: absent: Dysuria - Integumentary Integumentary: absent: Rash - Neurological Neurological: absent: Dizziness, Headaches Past Patient History - Infectious Disease Hx of Infectious Diseases: None - Past Medical History & Family History Past Medical History?: No - Past Social History Alcohol: Other (hx abuse) - CARDIAC Hx Cardiac Disorders: No - PULMONARY Hx Respiratory Disorders: No - NEUROLOGICAL Hx Neurological Disorder: No - HEENT Hx HEENT Problems: No - RENAL Hx Chronic Kidney Disease: No - ENDOCRINE/METABOLIC Hx Endocrine Disorders: No - HEMATOLOGICAL/ONCOLOGICAL Hx Blood Disorders: No - INTEGUMENTARY Hx Dermatological Problems: No - MUSCULOSKELETAL/RHEUMATOLOGICAL Hx Musculoskeletal Disorders: Yes - GASTROINTESTINAL Hx Gastrointestinal Disorders: No - GENITOURINARY/GYNECOLOGICAL Hx Genitourinary Disorders: No - PSYCHIATRIC Hx Depression: Yes Hx Substance Use: No - SURGICAL HISTORY Hx Surgeries: Yes Hx Musculoskeletal Surgery: Yes (left hip replacement) Other/Comment: PT USES CANE TO WALK AROUND - ANESTHESIA Hx Anesthesia: Yes Hx Anesthesia Reactions: No Hx Malignant Hyperthermia: No Meds Allergies/Adverse Reactions: Allergies Allergy/AdvReac Type Severity Reaction Status Date / Time No Known Allergies Allergy Verified 07/02/18 14:48 - Medications Medications: Current Medications Acetaminophen (Tylenol 325mg Tab) 650 mg PO Q4 PRN PRN Reason: for 4-7 pain Al Hydrox/Mg Hydrox/Simethicone (Maalox Plus 30 Ml) 30 ml PO Q4 PRN PRN Reason: Dyspepsia Diphenhydramine HCl (Benadryl) 50 mg IM Q6 PRN PRN Reason: Extrapyramidal S/S Unable PO Diphenhydramine HCl (Benadryl) 50 mg PO Q6 PRN PRN Reason: Extrapyramidal Symptoms Diphenhydramine HCl (Benadryl) 25 mg PO HS PRN PRN Reason: Insomnia Folic Acid (Folic Acid) 1 mg PO DAILY [facility] Last Admin: 07/03/18 09:11 Dose: 1 mg Haloperidol (Haldol) 5 mg PO Q4 PRN PRN Reason: Agitation Haloperidol Lactate (Haldol) 5 mg IM Q4 PRN PRN Reason: Agitation, Unable to Take PO Lorazepam (Ativan) 2 mg IM Q6 PRN PRN Reason: Anxiety/Agitation,Unable PO Lorazepam (Ativan) 1 mg PO Q8 PRN PRN Reason: Anxiety/Agitation Lorazepam (Ativan) 1 mg PO TID [facility] Last Admin: 07/03/18 09:11 Dose: 1 mg Magnesium Hydroxide (Milk Of Magnesia) 30 ml PO HS PRN PRN Reason: Constipation Mirtazapine (Remeron) 15 mg PO HS [facility] Multivitamins/Minerals (Therapeutic-M Tab) 1 tab PO DAILY [facility] Last Admin: 07/03/18 09:11 Dose: 1 tab Naproxen (Naproxen) 500 mg PO Q12 PRN PRN Reason: Pain, moderate (4-7) Thiamine HCl (Vitamin B1 Tab) 100 mg PO DAILY [facility] Last Admin: 07/03/18 09:12 Dose: 100 mg Physical Exam - Constitutional Appears: Non-toxic, No Acute Distress - Head Exam Head Exam: ATRAUMATIC, NORMAL INSPECTION, NORMOCEPHALIC - Eye Exam Eye Exam: EOMI, Normal appearance, PERRL - ENT Exam ENT Exam: Mucous Membranes Moist - Respiratory Exam Respiratory Exam: Clear to Auscultation Bilateral, NORMAL BREATHING PATTERN. absent: Decreased Breath Sounds, Rales, Rhonchi, Wheezes, Respiratory Distress - Cardiovascular Exam Cardiovascular Exam: REGULAR RHYTHM, RRR, +S1, +S2. absent: Tachycardia - Extremities Exam Extremities exam: Negative for: calf tenderness - Neurological Exam Neurological exam: Alert, Normal Gait Results - Vital Signs Recent Vital Signs: Last Vital Signs Temp 97.1 F L 07/03/18 06:00 Pulse 64 07/03/18 06:00 Resp 18 07/03/18 06:00 BP 138/84 07/03/18 06:00 Pulse Ox 97 07/02/18 20:33 - Labs Result Diagrams: 07/03/18 06:09 07/03/18 06:09 Labs: Laboratory Results - last 24 hr 07/02/18 07/02/18 07/02/18 15:44 15:53 20:40 WBC RBC Hgb Hct MCV MCH MCHC RDW Plt Count MPV Neut % (Auto) Lymph % (Auto) [place] % (Auto) Eos % (Auto) Baso % (Auto) Neut # (Auto) Lymph # (Auto) [place] # (Auto) Eos # (Auto) Baso # (Auto) Sodium Potassium Chloride Carbon Dioxide Anion Gap BUN Creatinine Est GFR ( Amer) Est GFR (Non-Af Amer) POC Glucose (mg/dL) 136 H Random Glucose Calcium Total Bilirubin AST ALT Alkaline Phosphatase Total Protein Albumin Globulin Albumin/Globulin Ratio Triglycerides Cholesterol LDL Cholesterol Direct HDL Cholesterol Thyroxine (T4) TSH 3rd Generation Urine Color Straw Urine Clarity Clear Urine pH 6.0 Ur Specific [place] 1.009 Urine Protein Negative Urine Glucose (UA) Neg Urine Ketones Negative Urine Blood Negative Urine Nitrate Negative Urine Bilirubin Negative Urine Urobilinogen 0.2-1.0 Ur Leukocyte Esterase Neg Urine RBC (Auto) < 1 Urine Microscopic WBC 1 Urine Opiates Screen Urine Methadone Screen Ur Barbiturates Screen Ur Phencyclidine Scrn Ur Amphetamines Screen U Benzodiazepines Scrn U Oth Cocaine Metabols U Cannabinoids Screen Alcohol, Quantitative 234 H 07/02/18 07/02/18 07/02/18 20:40 20:45 20:45 WBC 5.2 RBC 4.37 L Hgb 11.3 L Hct 35.0 MCV 80.1 MCH 25.9 L MCHC 32.3 L RDW 15.2 H Plt Count 250 MPV 7.7 Neut % (Auto) 50.8 Lymph % (Auto) 34.8 [place] % (Auto) 9.8 Eos % (Auto) 3.1 Baso % (Auto) 1.5 Neut # (Auto) 2.6 Lymph # (Auto) 1.8 [place] # (Auto) 0.5 Eos # (Auto) 0.2 Baso # (Auto) 0.1 Sodium 141 Potassium 3.4 L Chloride 105 Carbon Dioxide 23 Anion Gap 16 BUN 9 Creatinine 0.9 Est GFR ( Amer) > 60 Est GFR (Non-Af Amer) > 60 POC Glucose (mg/dL) Random Glucose 93 Calcium 9.0 Total Bilirubin AST ALT Alkaline Phosphatase Total Protein Albumin Globulin Albumin/Globulin Ratio Triglycerides Cholesterol LDL Cholesterol Direct HDL Cholesterol Thyroxine (T4) TSH 3rd Generation Urine Color Urine Clarity Urine pH Ur Specific [place] Urine Protein Urine Glucose (UA) Urine Ketones Urine Blood Urine Nitrate Urine Bilirubin Urine Urobilinogen Ur Leukocyte Esterase Urine RBC (Auto) Urine Microscopic WBC Urine Opiates Screen Negative Urine Methadone Screen Negative Ur Barbiturates Screen Negative Ur Phencyclidine Scrn Negative Ur Amphetamines Screen Negative U Benzodiazepines Scrn Negative U Oth Cocaine Metabols Negative U Cannabinoids Screen Negative Alcohol, Quantitative 07/03/18 07/03/18 06:09 06:09 WBC 5.0 RBC 4.46 Hgb 11.5 L Hct 35.6 MCV 79.7 L MCH 25.9 L MCHC 32.4 L RDW 15.2 H Plt Count 256 MPV 8.0 Neut % (Auto) 51.9 Lymph % (Auto) 31.1 [place] % (Auto) 12.3 H Eos % (Auto) 3.2 Baso % (Auto) 1.5 Neut # (Auto) 2.6 Lymph # (Auto) 1.6 [place] # (Auto) 0.6 Eos # (Auto) 0.2 Baso # (Auto) 0.1 Sodium 140 Potassium 3.8 Chloride 104 Carbon Dioxide 28 Anion Gap 12 BUN 12 Creatinine 0.8 Est GFR ( Amer) > 60 Est GFR (Non-Af Amer) > 60 POC Glucose (mg/dL) Random Glucose 100 Calcium 9.3 Total Bilirubin 0.6 AST 75 H ALT 40 Alkaline Phosphatase 77 Total Protein 7.4 Albumin 4.1 Globulin 3.3 Albumin/Globulin Ratio 1.3 Triglycerides 82 Cholesterol 206 H LDL Cholesterol Direct 113 HDL Cholesterol 88 H Thyroxine (T4) 5.71 TSH 3rd Generation 2.74 Urine Color Urine Clarity Urine pH Ur Specific [place] Urine Protein Urine Glucose (UA) Urine Ketones Urine Blood Urine Nitrate Urine Bilirubin Urine Urobilinogen Ur Leukocyte Esterase Urine RBC (Auto) Urine Microscopic WBC Urine Opiates Screen Urine Methadone Screen Ur Barbiturates Screen Ur Phencyclidine Scrn Ur Amphetamines Screen U Benzodiazepines Scrn U Oth Cocaine Metabols U Cannabinoids Screen Alcohol, Quantitative Assessment & Plan - Assessment and Plan (Free Text) Assessment: 57 y/o man w/ pmh of alcoholism is admitted to psych for depression and alcohol abuse Plan: Depression - management as per psychiatry team - monitor for acute changes Alcohol abuse - management as per psychiatry - monitor for acute changes Prophylactic measures - ambulating, low risk for DVT <Che Acosta - Last Filed: 07/03/18 19:46> Meds - Medications Medications: Current Medications Acetaminophen (Tylenol 325mg Tab) 650 mg PO Q4 PRN PRN Reason: for 4-7 pain Al Hydrox/Mg Hydrox/Simethicone (Maalox Plus 30 Ml) 30 ml PO Q4 PRN PRN Reason: Dyspepsia Diphenhydramine HCl (Benadryl) 50 mg IM Q6 PRN PRN Reason: Extrapyramidal S/S Unable PO Diphenhydramine HCl (Benadryl) 50 mg PO Q6 PRN PRN Reason: Extrapyramidal Symptoms Diphenhydramine HCl (Benadryl) 25 mg PO HS PRN PRN Reason: Insomnia Folic Acid (Folic Acid) 1 mg PO DAILY [facility] Last Admin: 07/03/18 09:11 Dose: 1 mg Haloperidol (Haldol) 5 mg PO Q4 PRN PRN Reason: Agitation Haloperidol Lactate (Haldol) 5 mg IM Q4 PRN PRN Reason: Agitation, Unable to Take PO Lorazepam (Ativan) 2 mg IM Q6 PRN PRN Reason: Anxiety/Agitation,Unable PO Lorazepam (Ativan) 1 mg PO Q8 PRN PRN Reason: Anxiety/Agitation Lorazepam (Ativan) 1 mg PO TID [facility] Last Admin: 07/03/18 17:00 Dose: 1 mg Magnesium Hydroxide (Milk Of Magnesia) 30 ml PO HS PRN PRN Reason: Constipation Mirtazapine (Remeron) 15 mg PO HS [facility] Multivitamins/Minerals (Therapeutic-M Tab) 1 tab PO DAILY [facility] Last Admin: 07/03/18 09:11 Dose: 1 tab Naproxen (Naproxen) 500 mg PO Q12 PRN PRN Reason: Pain, moderate (4-7) Thiamine HCl (Vitamin B1 Tab) 100 mg PO DAILY [facility] Last Admin: 07/03/18 09:12 Dose: 100 mg Results - Vital Signs Recent Vital Signs: Last Vital Signs Temp 98.1 F 03/29/19 16:05 Pulse 78 07/03/18 16:05 Resp 20 07/03/18 16:05 BP 129/73 07/03/18 16:05 Pulse Ox 97 07/02/18 20:33 - Labs Result Diagrams: 07/03/18 06:09 07/03/18 06:09 Labs: Laboratory Results - last 24 hr 07/02/18 07/02/18 07/02/18 20:40 20:40 20:45 WBC RBC Hgb Hct MCV MCH MCHC RDW Plt Count MPV Neut % (Auto) Lymph % (Auto) [place] % (Auto) Eos % (Auto) Baso % (Auto) Neut # (Auto) Lymph # (Auto) [place] # (Auto) Eos # (Auto) Baso # (Auto) Sodium 141 Potassium 3.4 L Chloride 105 Carbon Dioxide 23 Anion Gap 16 BUN 9 Creatinine 0.9 Est GFR ( Amer) > 60 Est GFR (Non-Af Amer) > 60 Random Glucose 93 Hemoglobin A1c Calcium 9.0 Total Bilirubin AST ALT Alkaline Phosphatase Total Protein Albumin Globulin Albumin/Globulin Ratio Triglycerides Cholesterol LDL Cholesterol Direct HDL Cholesterol Thyroxine (T4) TSH 3rd Generation Urine Color Straw Urine Clarity Clear Urine pH 6.0 Ur Specific [place] 1.009 Urine Protein Negative Urine Glucose (UA) Neg Urine Ketones Negative Urine Blood Negative Urine Nitrate Negative Urine Bilirubin Negative Urine Urobilinogen 0.2-1.0 Ur Leukocyte Esterase Neg Urine RBC (Auto) < 1 Urine Microscopic WBC 1 Urine Opiates Screen Negative Urine Methadone Screen Negative Ur Barbiturates Screen Negative Ur Phencyclidine Scrn Negative Ur Amphetamines Screen Negative U Benzodiazepines Scrn Negative U Oth Cocaine Metabols Negative U Cannabinoids Screen Negative RPR 07/02/18 07/03/18 07/03/18 20:45 06:09 06:09 WBC 5.2 5.0 RBC 4.37 L 4.46 Hgb 11.3 L 11.5 L Hct 35.0 35.6 MCV 80.1 79.7 L MCH 25.9 L 25.9 L MCHC 32.3 L 32.4 L RDW 15.2 H 15.2 H Plt Count 250 256 MPV 7.7 8.0 Neut % (Auto) 50.8 51.9 Lymph % (Auto) 34.8 31.1 [place] % (Auto) 9.8 12.3 H Eos % (Auto) 3.1 3.2 Baso % (Auto) 1.5 1.5 Neut # (Auto) 2.6 2.6 Lymph # (Auto) 1.8 1.6 [place] # (Auto) 0.5 0.6 Eos # (Auto) 0.2 0.2 Baso # (Auto) 0.1 0.1 Sodium 140 Potassium 3.8 Chloride 104 Carbon Dioxide 28 Anion Gap 12 BUN 12 Creatinine 0.8 Est GFR ( Amer) > 60 Est GFR (Non-Af Amer) > 60 Random Glucose 100 Hemoglobin A1c Calcium 9.3 Total Bilirubin 0.6 AST 75 H ALT 40 Alkaline Phosphatase 77 Total Protein 7.4 Albumin 4.1 Globulin 3.3 Albumin/Globulin Ratio 1.3 Triglycerides 82 Cholesterol 206 H LDL Cholesterol Direct 113 HDL Cholesterol 88 H Thyroxine (T4) 5.71 TSH 3rd Generation 2.74 Urine Color Urine Clarity Urine pH Ur Specific [place] Urine Protein Urine Glucose (UA) Urine Ketones Urine Blood Urine Nitrate Urine Bilirubin Urine Urobilinogen Ur Leukocyte Esterase Urine RBC (Auto) Urine Microscopic WBC Urine Opiates Screen Urine Methadone Screen Ur Barbiturates Screen Ur Phencyclidine Scrn Ur Amphetamines Screen U Benzodiazepines Scrn U Oth Cocaine Metabols U Cannabinoids Screen RPR 07/03/18 07/03/18 06:09 06:09 WBC RBC Hgb Hct MCV MCH MCHC RDW Plt Count MPV Neut % (Auto) Lymph % (Auto) [place] % (Auto) Eos % (Auto) Baso % (Auto) Neut # (Auto) Lymph # (Auto) [place] # (Auto) Eos # (Auto) Baso # (Auto) Sodium Potassium Chloride Carbon Dioxide Anion Gap BUN Creatinine Est GFR ( Amer) Est GFR (Non-Af Amer) Random Glucose Hemoglobin A1c 6.4 Calcium Total Bilirubin AST ALT Alkaline Phosphatase Total Protein Albumin Globulin Albumin/Globulin Ratio Triglycerides Cholesterol LDL Cholesterol Direct HDL Cholesterol Thyroxine (T4) TSH 3rd Generation Urine Color Urine Clarity Urine pH Ur Specific [place] Urine Protein Urine Glucose (UA) Urine Ketones Urine Blood Urine Nitrate Urine Bilirubin Urine Urobilinogen Ur Leukocyte Esterase Urine RBC (Auto) Urine Microscopic WBC Urine Opiates Screen Urine Methadone Screen Ur Barbiturates Screen Ur Phencyclidine Scrn Ur Amphetamines Screen U Benzodiazepines Scrn U Oth Cocaine Metabols U Cannabinoids Screen RPR Nonreactive Attending/Attestation - Attestation I have personally seen and examined this patient.: Yes I have fully participated in the care of the patient.: Yes I have reviewed all pertinent clinical information: Yes Notes (Text): 07/03/18 19:46 Agree with findings and plan as above.
--- NOTE | 2018-07-03 13:38 | CARD ---
APPROVED REPORT Date of service: 07/02/2018 EKG Measurement Heart [id number] <Conclusion> Normal sinus rhythm Left axis deviation Minimal voltage criteria for LVH, may be normal variant T wave abnormality, consider lateral ischemia Abnormal ECG
[2018-07-04] MEDS: Multivitamin With Minerals Tab PO SCH (08:28)
--- NOTE | 2018-07-04 10:47 | PCM.PYCHPN ---
Psychiatric Progress Note - Psychiatric Progress Note Patient seen today, length of contact: pt evaluated discussed with team chart reviewed Patient Chief Complaint: I am alright Problems Identified/Issues Discussed: pt seen in day room, superficially cooperative , presenting with depressed mood and affect, no reported alcohol withdrawal symptoms, no changes in sleep or appetite denied any current thoughts of self harm, denied perceptual disturbances DSM 5 Symptoms Update: depression alcohol abuse Medication Change: No Medical Record Reviewed: Yes Mental Status Examination - Cognitive Function Orientation: Person, Place, Situation, Time Attention: WNL Concentration: WNL Association: WNL Fund of Knowledge: WNL Decription of patient's judgement and insights: partial insight fair judgment - Mood Mood: Depressed, Anxious - Affect Affect: Constricted, Depressed - Speech Speech: Soft - Formal Thought Process Formal Thought Process: No Impairment - Suicidal Ideation Suicidal Ideation: No - Homicidal Ideation Homicidal Ideation: No Goal/Treatment Plan - Goal/Treatment Plan Need for Continued Stay: Severe depression anxiety, Discharge may exacerbated symptoms Progress Toward Problem(s) and Goals/Treatment Plan: continue with remeron down taper ativan gradually motivational group and supportive therapy
[2018-07-05] MEDS: Multivitamin With Minerals Tab PO SCH (09:04)
--- NOTE | 2018-07-05 12:08 | PCM.PYCHPN ---
Psychiatric Progress Note - Psychiatric Progress Note Patient seen today, length of contact: pt evaluated discussed with team chart reviewed Patient Chief Complaint: I am fine Problems Identified/Issues Discussed: pt seen in day room, superficially cooperative , poor eye contact presenting with depressed mood and affect, no reported alcohol withdrawal symptoms, no changes in sleep or appetite denied any current thoughts of self harm, denied perceptual disturbances DSM 5 Symptoms Update: depression alcohol abuse Medication Change: Yes (down taper ativan) Medical Record Reviewed: Yes Mental Status Examination - Cognitive Function Orientation: Person, Place, Situation, Time Attention: WNL Concentration: WNL Association: WNL Fund of Knowledge: WN Decription of patient's judgement and insights: partial insight fair judgment - Mood Mood: Depressed, Anxious - Affect Affect: Constricted, Depressed - Speech Speech: Soft - Formal Thought Process Formal Thought Process: No Impairment - Suicidal Ideation Suicidal Ideation: No - Homicidal Ideation Homicidal Ideation: No Goal/Treatment Plan - Goal/Treatment Plan Need for Continued Stay: Severe depression anxiety, Discharge may exacerbated symptoms Progress Toward Problem(s) and Goals/Treatment Plan: continue with remeron down taper ativan gradually motivational group and supportive therapy
[2018-07-06] MEDS: Multivitamin With Minerals Tab PO SCH (08:11)
--- NOTE | 2018-07-06 08:36 | PCM.PYCHPN ---
Psychiatric Progress Note - Psychiatric Progress Note Patient seen today, length of contact: Pt divya, case discussed w/ team, chart reviewed Patient Chief Complaint: Depression Problems Identified/Issues Discussed: Patient continues to report feeling depressed, hopeless, w/ low energy/motivation. He denies acute suicidal ideation/plan/intent. He continues to be worried about his skilled nursing housing problems and states that he has been in contact with his brother. No signs/symptoms of ETOH withdrawal. We discussed continued tapering of Ativan. Medication Change: Yes (Taper Ativan) Medical Record Reviewed: Yes Consults ordered or reviewed: Medicine consult Mental Status Examination - Cognitive Function Orientation: Person, Place, Situation, Time Memory: Intact Attention: WNL Concentration: WNL Association: WNL Fund of Knowledge: [facility] Decription of patient's judgement and insights: Improving I/J - Mood Mood: Depressed, Anxious - Affect Affect: Constricted, Depressed - Speech Speech: Soft - Formal Thought Process Formal Thought Process: No Impairment Psychotic Thoughts and Behaviors: No AH/VH/paranoia/delusions - Suicidal Ideation Suicidal Ideation: No - Homicidal Ideation Homicidal Ideation: No Goal/Treatment Plan - Goal/Treatment Plan Need for Continued Stay: Severe depression anxiety, Discharge may exacerbated symptoms Progress Toward Problem(s) and Goals/Treatment Plan: Major Depressive Disorder; Alcohol Use Disorder -Medicine consult -Individual and group therapy -Psychoeducation -Thiamine and Folate -Taper Ativan -Continue Remeron -Disposition planning
[2018-07-07 05:58] VITALS: RESP 18
--- NOTE | 2018-07-07 08:22 | PCM.PYCHPN ---
Psychiatric Progress Note - Psychiatric Progress Note Patient seen today, length of contact: Pt divya, case discussed w/ team, chart reviewed Patient Chief Complaint: Depression Problems Identified/Issues Discussed: Patient reports that his mood is improving. He is more hopeful for the future. He discussed his continued concerns about housing. He denies acute signs/symptoms of ETOH withdrawal. He denies acute suicidal ideation/plan/intent. Medication Change: Yes (Stop Ativan) Medical Record Reviewed: Yes Consults ordered or reviewed: Medicine consult Mental Status Examination - Cognitive Function Orientation: Person, Place, Situation, Time Memory: Intact Attention: WNL Concentration: WNL Association: WN Fund of Knowledge: [facility] Decription of patient's judgement and insights: Improving I/J - Mood Mood: Depressed, Anxious - Affect Affect: Constricted - Speech Speech: Soft - Formal Thought Process Formal Thought Process: No Impairment Psychotic Thoughts and Behaviors: No AH/VH/paranoia/delusions - Suicidal Ideation Suicidal Ideation: No - Homicidal Ideation Homicidal Ideation: No Goal/Treatment Plan - Goal/Treatment Plan Need for Continued Stay: Severe depression anxiety, Discharge may exacerbated symptoms Progress Toward Problem(s) and Goals/Treatment Plan: Major Depressive Disorder; Alcohol Use Disorder -Medicine consult -Individual and group therapy -Psychoeducation -Thiamine and Folate -Stop Ativan -Continue Remeron -Disposition planning- patient is improving clinically; likely discharge tomorrow if he continues to improve Estimated Date of D/C: 07/08/18
[2018-07-07] MEDS: Multivitamin With Minerals Tab PO SCH (08:39)
[2018-07-07 15:55] VITALS: PULSE 74
[2018-07-08 06:18] VITALS: BP 129/75; TEMP 97.9
[2018-07-08] MEDS: Multivitamin With Minerals Tab PO SCH (08:10)
--- NOTE | 2018-07-08 08:39 | PCM.PYCHDC ---
Mental Status Examination - Mental Status Examination Orientation: Person, Place, Situation, Time Memory: Intact Mood: Neutral Affect: Broad Speech: Appropriate Attention: WNL Concentration: WNL Association: WNL Fund of Knowledge: WNL Formal Thought Process: No Impairment Description of patient's judgement and insight: Fair I/J Psychotic Thoughts and Behaviors: No AH/VH/paranoia/delusions Suicidal Ideation: No Current Homicidal Ideation?: No Discharge Summary - Discharge Note Reason for Hospitalization: HPI: 57 yo male w/ h/o depression and alcohol use disorder, presents with worsening depression, anxiety, feeling of hopelessness, sleep/appetite disturbances, and suicidal ideation w/o current plan or intent, in the context of continued alcohol abuse. Denies acute AH/VH/HI. Patient is able to contract for safety at this time. PPHx: History of multiple psychiatric admissions to [address], most recent admission 06/14/15-06/20/18. PMHx: Chronic hip pain s/p hip replacement; ambulates with a cane FHx: Denies family history of psychiatric illness SHx: Homeless; drinks 4-5 pints of vodka/daily; denies drugs; denies cig use; ; 1 adult daughter (estranged from daughter) Consultations:: List each consultation separately and include: 1. Reason for request. 2. Findings. 3. Follow-up Consultations: Medicine consult Summary of Hospital Course include:: 1. Description of specific treatment plan utilized for patients during their course of treatmen. 2. Summarize the time- course for resolution of acute symptoms and/or regressed behaviors. 3. Describe issues identified and worked on during hospitalization. 4. Describe medication utilized. 5. Describe medical problems identified and treated. 6. Reassessment of suicide risk Summary of Hospital Course: Patient was admitted to the psychiatry unit. Patient was treated w/ Ativan to prevent ETOH withdrawal, now discontinued. Patient was stabilized on Remeron 15 mg PO HS. He denies acute depression/anxiety/AH/VH/SI/HI. He is currently psychiatrically stable for discharge. Psychoeducation provided on the importance of compliance with treatment/medicaitons and the dangers of alcohol abuse. - Diagnosis (1) Major depressive disorder Current Visit: No Status: Chronic (2) Alcohol use disorder Current Visit: No Status: Chronic - Final Diagnosis (DSM 5) Condition upon Discharge: STABLE DSM 5: Major Depressive Disorder; Alcohol Use Disorder Disposition: HOME/ ROUTINE Follow-up Treatment Plan: -Discharge w/ outpatient follow-up; continue Remeron 15 mg PO HS -Patient informed to go to the nearest ER, call 911 or his outpatient provider if he has suicidal ideation/plan/intent in the future Prescriptions/Medication Reconciliation: Folic Acid 1 mg PO DAILY #30 tab Mirtazapine [Remeron] 15 mg PO HS #30 tab Naproxen [Naprosyn] 500 mg PO Q12 PRN #60 tablet PRN Reason: Pain, Moderate (4-7) Thiamine [Vitamin B1 Tab] 100 mg PO DAILY #30 tab - Smoking Cessation Smoking Cessation Medication prescribed: No Reason for not providing: Not indicated - Antipsychotic Medications Pt discharged on 2 or more routine antipsychotic medications: No
== END 2018-07-08 09:30 | disposition home or self-care (01) | DRG 426 ==
LOC: H.ER 14:41 → H.ERHOLD 17:53 → H.STEP 21:45
PROVIDERS: ADMIT Psychiatry & Neurology Psychiatry; ATTEND Psychiatry & Neurology Psychiatry
PROC: GZHZZZZ Group Psychotherapy (ICD-10-PCS; principal; 2018-07-02)
PROC: GZ56ZZZ Individual Psychotherapy, Supportive (ICD-10-PCS; 2018-07-02)
PROC: HZ57ZZZ Individual Psychotherapy for Substance Abuse Treatment, Motivational Enhancement (ICD-10-PCS; 2018-07-02)
DX: F32.9 Major depressive disorder, single episode, unspecified (principal); G89.29 Other chronic pain; R45.851 Suicidal ideations; Z59.0 Homelessness; Z91.19 Patient's noncompliance with other medical treatment and regimen; Z91.14 Patient's other noncompliance with medication regimen; Z96.642 Presence of left artificial hip joint; F41.9 Anxiety disorder, unspecified; Z72.89 Other problems related to lifestyle; F10.10 Alcohol abuse, uncomplicated; Y90.9 Presence of alcohol in blood, level not specified

== ENCOUNTER 2018-07-09 23:12 | Emergency (ER) | payer OTHER ==
[2018-07-09 23:13] VITALS: BMI 25.8
[2018-07-09 23:16] VITALS: O2SAT 96
--- NOTE | 2018-07-10 01:01 | ED PDOC ---
HPI: General Adult Time Seen by Provider: 07/10/18 00:59 Chief Complaint (Nursing): Hip Pain Chief Complaint (Provider): HIP LEFT PAIN History Per: Patient (57 Y/O MALE HERE FOR EVALUATION OF LEFT HIP PAIN CHRONIC. PATIENT ADMITS ETOH INTAKE TODAY. DID NOT TAKE ANY OTC MEDICATIONS.) Past Medical History Reviewed: Historical Data, Nursing Documentation, Vital Signs Vital Signs: Last Vital Signs Temp 98.0 F 07/09/18 23:15 Pulse 88 07/09/18 23:15 Resp 16 07/09/18 23:15 BP 144/86 07/09/18 23:15 Pulse Ox 96 07/09/18 23:15 - Medical History PMH: Depression, Chronic Pain (left hip) Denies: Alzheimer's Disease, Asthma, Atrial Fibrillation, Bronchitis, Cardia Arrhythmia, CHF, COPD, Dementia, Diabetes, Emphysema, Hepatitis, HIV, HTN, Hypercholesterolemia, Migraine, Mitral Valve Prolapse, Multiple Sclerosis, Parkinson's Disease, Peripheral Edema, Pneumonia, Pulmonary Embolism, Chronic Kidney Disease, Seizures, Sexually Transmitted Disease, Sleep Apnea, TIA - Surgical History Surgical History: Denies: Pacemaker - Family History Family History: States: Unknown Family Hx - Immunization History Hx Tetanus Toxoid Vaccination: No Hx Influenza Vaccination: No Hx Pneumococcal Vaccination: No - Home Medications Home Medications: Ambulatory Orders Medication Instructions Recorded Folic Acid 1 mg PO DAILY #30 tab 07/07/18 Mirtazapine [Remeron] 15 mg PO HS #30 tab 07/07/18 Multimineral/Multivitamin 1 tab PO DAILY tab 07/07/18 [Therapeutic-M Tab] Naproxen [Naprosyn] 500 mg PO Q12 PRN #60 tablet 07/07/18 Thiamine [Vitamin B1 Tab] 100 mg PO DAILY #30 tab 07/07/18 - Allergies Allergies/Adverse Reactions: Allergies Allergy/AdvReac Type Severity Reaction Status Date / Time No Known Allergies Allergy Verified 07/02/18 14:48 Review of Systems ROS Statement: Except As Marked, All Systems Reviewed And Found Negative Physical Exam - Reviewed Nursing Documentation Reviewed: Yes Vital Signs Reviewed: Yes - Physical Exam Appears: Positive for: Well, Non-toxic, No Acute Distress Head Exam: Positive for: ATRAUMATIC, NORMAL INSPECTION, NORMOCEPHALIC Skin: Positive for: Normal Color, Warm, DRY Eye Exam: Positive for: EOMI, Normal appearance, PERRL ENT: Positive for: Normal ENT Inspection Neck: Positive for: Normal, Painless ROM Cardiovascular/Chest: Positive for: Regular Rate, Rhythm Respiratory: Positive for: CNT, Normal Breath Sounds Gastrointestinal/Abdominal: Positive for: Normal Exam, Soft Back: Positive for: Normal Inspection Extremity: Positive for: Normal ROM, Tenderness (MILD LEFT GLUTEAL TENDERNESS) Neurological/Psych: Positive for: Awake, Alert, Normal Tone - ECG O2 Sat by Pulse Oximetry: 96 - Progress ED Course And Treament: ACETAMINOPHEN 650MG X 1 DOSE Patient noted ambulating in ED with steady gait. Disposition - Clinical Impression Clinical Impression: Chronic left hip pain - Patient ED Disposition Is Patient to be Admitted: No - Disposition Referrals: Lucrecia Becerra MD [Primary Care Provider] - Disposition: Routine/Home Disposition Time: 02:02 Condition: FAIR Instructions: Chronic Pain (DC), Hip Pain (DC)
[2018-07-10 02:09] VITALS: BP 131/62; PULSE 84; RESP 18; TEMP 97.9
== END 2018-07-10 02:08 | disposition home or self-care (01) ==
LOC: H.ER 23:12
DX: M25.552 Pain in left hip (principal); G89.29 Other chronic pain

== ENCOUNTER 2018-07-16 00:37 | Emergency (ER) | payer OTHER ==
[2018-07-16 00:46] VITALS: BMI 27.2
--- NOTE | 2018-07-16 02:16 | ED PDOC ---
HPI: Psych/Substance Abuse Time Seen by Provider: 07/16/18 01:33 Chief Complaint (Nursing): Alcohol Ingestion Chief Complaint (Provider): etoh History Per: Patient Additional Complaint(s): 57 y/o male presents to ED intoxicated, requesting to sleep for a while. Patient admits to falling earlier in the park; states the hip he had surgery on sometimes causes him to lose his footing and he trips. States he hit his head and thinks he feels a bump. Unsure of LOC. Denies dizziness, nausea/vomiting, neck/back pain Past Medical History Reviewed: Historical Data, Nursing Documentation, Vital Signs Vital Signs: Last Vital Signs Temp 97.8 F 07/16/18 00:46 Pulse 81 07/16/18 00:46 Resp 16 07/16/18 00:46 BP 151/101 H 07/16/18 00:46 Pulse Ox 95 07/16/18 00:46 - Medical History PMH: Depression, Chronic Pain (left hip) Denies: Alzheimer's Disease, Asthma, Atrial Fibrillation, Bronchitis, Cardia Arrhythmia, CHF, COPD, Dementia, Diabetes, Emphysema, Hepatitis, HIV, HTN, Hypercholesterolemia, Migraine, Mitral Valve Prolapse, Multiple Sclerosis, Parkinson's Disease, Peripheral Edema, Pneumonia, Pulmonary Embolism, Chronic Kidney Disease, Seizures, Sexually Transmitted Disease, Sleep Apnea, TIA - Surgical History Surgical History: Denies: Pacemaker - Family History Family History: States: Unknown Family Hx - Immunization History Hx Tetanus Toxoid Vaccination: No Hx Influenza Vaccination: No Hx Pneumococcal Vaccination: No - Home Medications Home Medications: Ambulatory Orders Medication Instructions Recorded Folic Acid 1 mg PO DAILY #30 tab 07/07/18 Mirtazapine [Remeron] 15 mg PO HS #30 tab 07/07/18 Multimineral/Multivitamin 1 tab PO DAILY tab 07/07/18 [Therapeutic-M Tab] Naproxen [Naprosyn] 500 mg PO Q12 PRN #60 tablet 07/07/18 Thiamine [Vitamin B1 Tab] 100 mg PO DAILY #30 tab 07/07/18 - Allergies Allergies/Adverse Reactions: Allergies Allergy/AdvReac Type Severity Reaction Status Date / Time No Known Allergies Allergy Verified 07/16/18 00:45 Review of Systems ROS Statement: Except As Marked, All Systems Reviewed And Found Negative Physical Exam - Reviewed Nursing Documentation Reviewed: Yes Vital Signs Reviewed: Yes - Physical Exam Appears: Positive for: Well, Non-toxic, No Acute Distress Head Exam: Positive for: ATRAUMATIC, NORMAL INSPECTION, NORMOCEPHALIC Skin: Positive for: Rash (scabbed abrasion left cheek) Eye Exam: Positive for: Normal appearance, EOMI, PERRL ENT: Positive for: Normal ENT Inspection Cardiovascular/Chest: Positive for: Regular Rate, Rhythm Respiratory: Positive for: Normal Breath Sounds Gastrointestinal/Abdominal: Positive for: Normal Exam Back: Positive for: Normal Inspection Neurological/Psych: Positive for: Awake, Alert, Oriented (x3) - ECG O2 Sat by Pulse Oximetry: 95 - Progress ED Course And Treament: -accucheck -CT head -CT facial bones CT scan of the head. CLINICAL HISTORY: Fall. TECHNIQUE: Multiple axial CT images were obtained through the brain without IV contrast material. COMMENTS: There is normal configuration of sella turcica. There are no intra or extra- axial collections. There is no mass effect or midline shift. There is no evidence of hematoma formation. No hydrocephalus is present. The ventricles are symmetrical. No abnormal calcifications are present. There is diffuse age-appropriate cerebellar and cerebral atrophy with proporti onally dilated ventricles and cortical sulci. There are bilateral periventricular and subcortical white matter hypolucencies compatible with mild chronic microvascular disease. Otherwise, no significant focal abnormalities are seen either in the posterior fossa or supratentorial compartment. IMPRESSION: 1. Age-appropriate cerebellar and cerebral atrophy. 2. Mild chronic microvascular disease. 3. No evidence of acute intracranial pathology CT scan of the facial bones. Indication: Fall. Technique: Axial CT scan images without contrast. Reformatted coronal and sagittal images. Findings: Anterior facial soft tissue edema. Chronic mucosal inflammatory changes of the maxillary sinuses and ethmoid air cells. Normal bilateral orbital contents. Normal bilateral medial and inferior orbital foster. Normal bilateral maxillary bones. Normal bilateral frontozygomatic arches. Normal bilateral zygomatic temporal arches. Normal nasal bones. Normal anterior nasal spine. Normal soft tissue structures. There is no demonstrated fracture. Normal visualized frontal and sphenoid sinuses. Impression: No CT evidence of acute bone pathology. 4:00 Patient awake, alert, oriented x3. Ambulating at baseline Patient educated on findings, discharged with instructions to follow up PMD within 2-3 days Advised Tylenol/Ibuprofen PRN pain Return precautions given Disposition - Clinical Impression Clinical Impression: Alcohol abuse, Head injury - Patient ED Disposition Is Patient to be Admitted: No Counseled Patient/Family Regarding: Studies Performed, Diagnosis, Need For Followup - Disposition Disposition: Routine/Home Disposition Time: 03:59 Condition: IMPROVED Instructions: Minor Head Injury, Alcohol Abuse and Alcoholism (DC)
[2018-07-16 05:21] VITALS: BP 125/62; PULSE 76; RESP 15; TEMP 97.9; O2SAT 96
--- NOTE | 2018-07-16 11:19 | CT ---
Date of service: 07/16/2018 PROCEDURE: CT HEAD WITHOUT CONTRAST. HISTORY: etoh, head injury COMPARISON: 11/07/2017. TECHNIQUE: Axial computed tomography images were obtained through the head/brain without intravenous contrast. Supplemental Coronal and Sagittal projections created and reviewed. Radiation dose: Total exam DLP = 819.74 mGy-cm. This CT exam was performed using one or more of the following dose reduction techniques: Automated exposure control, adjustment of the mA and/or kV according to patient size, and/or use of iterative reconstruction technique. FINDINGS: HEMORRHAGE: No intracranial hemorrhage. BRAIN: No mass effect or edema. No atrophy or chronic microvascular ischemic changes. VENTRICLES: Unremarkable. No hydrocephalus. CALVARIUM: Unremarkable. PARANASAL SINUSES: Unremarkable as visualized. No significant inflammatory changes. MASTOID AIR CELLS: Unremarkable as visualized. No inflammatory changes. OTHER FINDINGS: None. IMPRESSION: No acute intracranial abnormalities. No significant findings to account for the clinical presentation. No significant interval change compared to the prior examination(s).
--- NOTE | 2018-07-16 11:21 | CT ---
Date of service: 07/16/2018 PROCEDURE: CT MAXILLOFACIAL BONES WITHOUT CONTRAST HISTORY: etoh, fall COMPARISON: None available. TECHNIQUE: Contiguous axial CT images of the maxillofacial bones were obtained. Coronal and sagittal reformats were generated. Radiation dose: Total exam DLP = 750.02 mGy-cm. This CT exam was performed using one or more of the following dose reduction techniques: Automated exposure control, adjustment of the mA and/or kV according to patient size, and/or use of iterative reconstruction technique. FINDINGS: NASAL BONES: Unremarkable. ORBITS: Unremarkable. PARANASAL SINUSES/ MASTOIDS: Evidence of chronic maxillary sinusitis. MAXILLA: Unremarkable. MANDIBLE/ TEMPOROMANDIBULAR JOINTS: Unremarkable. SKULL BASE: Unremarkable. TEMPORAL BONES: Middle ears and mastoid grossly unremarkable. OTHER FINDINGS: Facial-nasal soft tissue swelling. No visible fractures. IMPRESSION: No acute findings related to/ accounting for the clinical presentation. Concordant results (preliminary interpretation) provided by [employer]. Procedure Completed: 02:38. Preliminary Report: Interpreted and electronically signed: 03:52. Final Interpretation: 11:17.
== END 2018-07-16 05:21 | disposition home or self-care (01) ==
LOC: H.ER 00:37
DX: F10.10 Alcohol abuse, uncomplicated (principal); S09.90XA Unspecified injury of head, initial encounter; W19.XXXA Unspecified fall, initial encounter; Y92.89 Other specified places as the place of occurrence of the external cause; G89.29 Other chronic pain

== ENCOUNTER 2018-07-23 01:05 | Emergency (ER) | payer OTHER ==
[2018-07-23 01:05] VITALS: BMI 27.2
[2018-07-23 01:21] VITALS: O2SAT 97
--- NOTE | 2018-07-23 01:55 | ED PDOC ---
Lower Extremity Pain/Injury Time Seen by Provider: 07/23/18 01:21 Chief Complaint (Nursing): Hip Pain Chief Complaint (Provider): left hip pain History Per: Patient History/Exam Limitations: no limitations Onset/Duration Of Symptoms: Days Current Symptoms Are (Timing): Still Present Additional Complaint(s): 57 y/o male presents for evaluation of left hip pain x 1 week. Patient states he tripped and fell last week; was evaluated and discharged. Patient requesting "shot of Morphine" for pain. Denies numbness/weakness left lower extremity, limitation of movement. 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 Past Medical History Reviewed: Historical Data, Nursing Documentation, Vital Signs Vital Signs: Last Vital Signs Temp 98.1 F 07/23/18 01:13 Pulse 91 H 07/23/18 01:13 Resp 17 07/23/18 01:13 BP 153/86 H 07/23/18 01:13 Pulse Ox 97 07/23/18 01:13 - Medical History PMH: Depression, Chronic Pain (left hip) Denies: Alzheimer's Disease, Asthma, Atrial Fibrillation, Bronchitis, Cardia Arrhythmia, CHF, COPD, Dementia, Diabetes, Emphysema, Hepatitis, HIV, HTN, Hypercholesterolemia, Migraine, Mitral Valve Prolapse, Multiple Sclerosis, Parkinson's Disease, Peripheral Edema, Pneumonia, Pulmonary Embolism, Chronic Kidney Disease, Seizures, Sexually Transmitted Disease, Sleep Apnea, TIA - Surgical History Surgical History: Denies: Pacemaker - Family History Family History: States: Unknown Family Hx - Immunization History Hx Tetanus Toxoid Vaccination: No Hx Influenza Vaccination: No Hx Pneumococcal Vaccination: No - Home Medications Home Medications: Ambulatory Orders Medication Instructions Recorded Folic Acid 1 mg PO DAILY #30 tab 07/07/18 Mirtazapine [Remeron] 15 mg PO HS #30 tab 07/07/18 Multimineral/Multivitamin 1 tab PO DAILY tab 07/07/18 [Therapeutic-M Tab] Naproxen [Naprosyn] 500 mg PO Q12 PRN #60 tablet 07/07/18 Thiamine [Vitamin B1 Tab] 100 mg PO DAILY #30 tab 07/07/18 - Allergies Allergies/Adverse Reactions: Allergies Allergy/AdvReac Type Severity Reaction Status Date / Time No Known Allergies Allergy Verified 07/21/18 20:53 Review of Systems ROS Statement: Except As Marked, All Systems Reviewed And Found Negative Musculoskeletal: Positive for: Leg Pain Physical Exam - Reviewed Nursing Documentation Reviewed: Yes Vital Signs Reviewed: Yes - Physical Exam Appears: Positive for: Well, Non-toxic, No Acute Distress (sleeping) Head Exam: Positive for: ATRAUMATIC, NORMAL INSPECTION, NORMOCEPHALIC Skin: Positive for: Normal Color Cardiovascular/Chest: Positive for: Regular Rate, Rhythm Respiratory: Positive for: Normal Breath Sounds Back: Positive for: Normal Inspection Extremity: Positive for: Normal ROM Neurological/Psych: Positive for: Awake, Alert, Oriented (x3) - ECG O2 Sat by Pulse Oximetry: 97 - Progress ED Course And Treament: -Toradol IM Patient was advised to follow up with his PMD/ortho for further evaluation. Return precautions given Disposition - Clinical Impression Clinical Impression: Hip pain - Patient ED Disposition Is Patient to be Admitted: No Counseled Patient/Family Regarding: Diagnosis, Need For Followup - Disposition Referrals: Charles French MD [Medical Doctor] - Disposition: Routine/Home Disposition Time: 03:00 Condition: IMPROVED Instructions: Hip Pain
[2018-07-23 04:07] VITALS: BP 146/86; PULSE 78; RESP 16; TEMP 98.3
== END 2018-07-23 04:07 | disposition home or self-care (01) ==
LOC: H.ER 01:05
DX: M25.552 Pain in left hip (principal)
CPT/HCPCS: 96372; 99283; J1885